=== PATIENT | female | born 1950 | race Caucasian/White ===

== ENCOUNTER → 2017-04-11 10:38 | Outpatient (CLI) | payer MEDICARE, SELFPAY ==
[2017-04-11 12:28] LABS: Erythrocyte Sedimentation Rate 8 mm/hr (0-30)
[2017-04-11 12:31] LABS: Absolute Neutrophil Count 4.2 X10^3/uL (2.0-7.7); Basophil# 0.02 X10^3/uL; Basophil% 0.2 % (0-1); Eosinophil# 0.16 X10^3/uL; Eosinophils% 1.8 % (0-5); Hematocrit 47.5 % (37-47); Hemoglobin 15.7 g/dl (12.0-15.0); Lymphocyte % 43.3 % (19-41); Mean Corp Hgb Conc 33.1 g/gl (32-36); Mean Corpuscular Hgb 30.5 pg (27.0-32.0); Mean Corpuscular Volume 92.2 fL (81-99); Mean Platelet Vol. 10.1 fl (6.2-12.0); Monocyte# 0.63 X10^3/uL; Monocyte% 7.2 % (0-10); Neutrophil # 4.15 X10^3/uL (2.7-7.7); Neutrophil % 47.3 % (47-70); Platelet Count 238 K/mm3 (150-450); RBC Distribution Width CV 13.7 % (11.6-14.6); RBC Distribution Width SD 46.2 fl (35.1-43.9); Red Blood Count 5.15 M/mm3 (4.2-5.4); White Blood Count 8.8 K/mm3 (4.4-11.0)
[2017-04-11 12:35] LABS: POSITIVE COUNT NO; POSITIVE DIFFERENTIAL NO; POSITIVE MORPHOLOGY NO
== END ==
PROVIDERS: Family Provider Family Medicine; PCP Family Medicine; Visit Provider Family Medicine
DX: M79.7 Fibromyalgia (principal)
CPT/HCPCS: 36415; 85025; 85652

== ENCOUNTER → 2017-07-10 09:01 | Outpatient (CLI) | payer MEDICARE, SELFPAY ==
--- NOTE | 2017-07-10 09:04 | ECHOD_ITS ---
Reason For Study: SYNCOPE Procedure This was a 2D Doppler, Color Flow transthoracic echocardiogram. The study was technically difficult. Exam performed in department. Left Ventricle Normal LV size. Moderate concentric left ventricular hypertrophy. Left ventricular systolic function is normal. The estimated ejection fraction is 65 %. Right Ventricle Normal RV size. ICD or pacer leads identified within the right ventricle. Normal systolic function. Atria The left atrium is mildly enlarged. Normal right atrium. ICD or pacer leads identified within the right atrium. No doppler evidence for ASD. Mitral Valve There is moderate mitral annular calcification. Extension of the mitral annular calcification onto the posterior mitral valve leaflet. Mild-Moderate (1-2+) eccentric mitral valve insufficiency. Tricuspid Valve Normal tricuspid valve. Mild tricuspid valve insufficiency. Right ventricular systolic pressure estimated to be 28 mmHg. Aortic Valve Trisinus/trileaflet aortic valve. Mild focal aortic valve calcification. Trivial aortic valve insufficiency. Pulmonic Valve The pulmonic valve is not well visualized. Great Vessels Normal sized aortic root. Pericardium/Pleural No pericardial effusion. MMode/2D Measurements & Calculations LVIDd: 4.2 cm IVSd: 1.6 cm Ao root diam: 2.9 cm LVIDs: 3.0 cm LVPWd: 1.3 cm LA dimension: 4.3 cm RVDd: 2.7 cm FS: 29.1 % LAV(MOD-bp): 43.8 ml LA A4 area: 14.3 cm2 RA A4 area: 12.0 cm2 LAV(MOD-bp) Indexed: 24.4 ml/m2 LAV(MOD-sp2): 49.2 ml LAV(MOD-sp4): 35.9 ml Doppler Measurements & Calculations MV E max artemio: 96.3 cm/sec Lat Peak E' Artemio: 5.6 cm/sec Med Peak E' Artemio: 3.5 cm/sec MV A max artemio: 110.5 cm/sec E/E' lat: 17.1 E/E' med: 27.3 MV E/A: 0.87 Ao V2 max: 155.7 cm/sec AI max artemio: 315.3 cm/sec LV V1 max: 133.4 cm/sec Ao max P.2 mmHg AI max P.8 mmHg LV V1 max P.1 mmHg AI dec slope: 137.7 cm/sec2 AI P1/2t: 670.6 msec PA V2 max: 103.3 cm/sec TR max artemio: 240.2 cm/sec TR max P.2 mmHg Interpretation Summary The study was technically difficult. Left ventricular systolic function is normal. The estimated ejection fraction is 65 %. Moderate concentric left ventricular hypertrophy. The left atrium is mildly enlarged. There is moderate mitral annular calcification. Extension of the mitral annular calcification onto the posterior mitral valve leaflet. Mild-Moderate (1-2+) eccentric mitral valve insufficiency. Mild tricuspid valve insufficiency. Mild focal aortic valve calcification. Trivial aortic valve insufficiency. Right ventricular systolic pressure estimated to be 28 mmHg. Transmitral diastolic flow velocities suggest diastolic dysfunction. ICD or pacer leads identified within the right atrium ICD or pacer leads identified within the right ventricle. Ordering Physician: Mateo Alfaro Referring Physician: Mateo Florian Performed By: Edith Barney RDCS, RVT
== END ==
PROVIDERS: Family Provider Family Medicine; PCP Family Medicine; Visit Provider Nurse Practitioner Family
DX: R55 Syncope and collapse (principal); I25.10 Atherosclerotic heart disease of native coronary artery without angina pectoris; I38 Endocarditis, valve unspecified
CPT/HCPCS: 93306

== ENCOUNTER 2017-12-21 12:08 | Emergency (ER) | payer MEDICARE, SELFPAY ==
[2017-12-21 12:09] VITALS: BP 121/76; PULSE 90; RESP 17; TEMP 36.4; O2SAT 98; BMI 32.8
--- NOTE | 2017-12-21 12:38 | VDLE_ITS ---
Reason For Study: Swelling RIGHT LEFT CFV is compressible, spontaneous, phasic, GSV is normal. competent and demonstrates normal CFV is compressible, spontaneous, phasic, augmentation. competent, and demonstrates normal FV is compressible, spontaneous, phasic, augmentation. competent and demonstrates normal FV is compressible, spontaneous, phasic, augmentation. competent and demonstrates normal POP V is compressible, spontaneous, phasic, augmentation. competent and demonstrates normal POP V is compressible, spontaneous, phasic, augmentation. competent and demonstrates normal T/P Trunk is compressible. augmentation. PTV is compressible. T/P Trunk is compressible. RT PerV is compressible. PTV is compressible. Rt GSV at the knee is dilated and non LT PerV is compressible. compressible consistent with acute SVT. Procedure Exam performed portable in ED. A preliminary report was called and/or faxed to Dr. Vences. Interpretation Summary Deep veins of the lower extremities are bilaterally patent and compressible segmentally. There is no evidence of deep vein thrombosis on either side. Valvular competence appears intact within the proximal deep venous systems bilaterally. Acute superficial thrombophlebitis is noted in the right greater saphenous vein at the level of the knee. The remainder of the right greater saphenous vein is patent and compressible. The left greater saphenous vein appears patent and compressible segmentally. Ordering Physician: Tarun Vences Referring Physician: Mateo Florian Performed By: Viviana Alfaro RDCS, RVT
--- NOTE | 2017-12-21 12:38 | EKG12_ITS ---
Test Reason : SOB Blood Pressure : / mmHG Vent. Rate : 090 BPM Atrial Rate : 090 BPM P-R Int : 162 ms QRS Dur : 154 ms QT Int : 438 ms P-R-T Axes : 072 058 236 degrees QTc Int : 535 ms Sinus rhythm with Premature supraventricular complexes Biatrial enlargement Left bundle branch block Abnormal ECG Confirmed by MIKE VILLA, JOY ([id number]), school photograph editor [place] ([id number]) on 12/22/2017 2:16:02 PM Referred By: ANGELI Confirmed By:JOY MCKEON MD
--- NOTE | 2017-12-21 12:38 | RAD_ITS ---
STUDY: X-RAY CHEST REASON FOR EXAM: Female, 67 years old. Bilateral leg edema, shortness of breath, weakness. TECHNIQUE: PA and lateral views of the chest. COMPARISON: Portable AP upright chest x-ray January 27, 2016; CT chest without contrast July 26, 2016. FINDINGS: Dual-lead left subclavian cardiac pacemaker/AICD again noted. The lungs are clear and expanded. There is no demonstrated pleural abnormality. Normal size heart. Sternal cerclage wires are present from a prior sternotomy. Normal mediastinum and wilmer. Normal visualized pulmonary arteries. Normal visualized aortic arch and descending thoracic aorta. There are stable mild degenerative changes of the mid thoracic spine. There is mild degenerative osteoarthritis of the bilateral acromioclavicular joints. Surgical clips consistent with prior cholecystectomy noted in the medial right upper quadrant of the abdomen. RAD/Chest PA and Lateral IMPRESSION: Prior median sternotomy. Dual-lead cardiac pacemaker/AICD again noted. Heart size normal. No CHF or infiltrate. Electronically Signed: Harish Rubio MD at 13:50 EDT , Service support ,
[2017-12-21 13:03] VITALS: O2SAT 97
[2017-12-21 13:08] LABS: Absolute Lymphocyte Count 3.42 X10^3/ul (0.83-4.51); Absolute Neutrophil Count 6.1 X10^3/uL (2.0-7.7); Basophil# 0.03 X10^3/uL; Basophil% 0.3 % (0-1); Eosinophil# 0.11 X10^3/uL; Eosinophils% 1.1 % (0-5); Hematocrit 45.9 % (37-47); Hemoglobin 15.9 g/dl (12.0-15.0); Lymphocyte # 3.42 X10^3/ul (4.0); Lymphocyte % 32.7 % (19-41); Mean Corp Hgb Conc 34.6 g/gl (32-36); Mean Corpuscular Hgb 31.1 pg (27.0-32.0); Mean Corpuscular Volume 89.8 fL (81-99); Mean Platelet Vol. 10.2 fl (6.2-12.0); Monocyte# 0.77 X10^3/uL; Monocyte% 7.4 % (0-10); Neutrophil # 6.07 X10^3/uL (2.7-7.7); POSITIVE COUNT NO; POSITIVE DIFFERENTIAL NO; POSITIVE MORPHOLOGY NO; Platelet Count 237 K/mm3 (150-450); RBC Distribution Width CV 13.7 % (11.6-14.6); RBC Distribution Width SD 44.7 fl (35.1-43.9); Red Blood Count 5.11 M/mm3 (4.2-5.4); White Blood Count 10.5 K/mm3 (4.4-11.0)
[2017-12-21 13:29] LABS: Anion Gap 8 (5-15); BUN 15 mg/dL (7-18); BUN/Creat Ratio 18.1 RATIO (10-20); Calcium,Total 9.5 mg/dL (8.5-10.1); Chloride 106 mmol/L (98-107); Creatinine, Serum 0.83 mg/dL (0.55-1.02); EST Glomerular Filtration Rate 74 mL/min (>60); Est Glom Filt Rate - Afr Amer 89 mL/min (>60); Estimated Creatinine Clearance 53.45 ml/min; Glucose 96 mg/dL (74-106); Sodium Level 138 mmol/L (136-145)
[2017-12-21 13:39] LABS: BNP,B-Type NATRIURETIC PEPTIDE 79.6 pg/mL (0-100)
[2017-12-21 13:53] LABS: CPK Total, Creatine Kinase 86 U/L (26-192)
--- NOTE | 2017-12-21 14:20 | CT_ITS ---
STUDY: CTA OF THE ABDOMINAL AORTA AND BILATERAL LOWER EXTREMITIES REASON FOR EXAM: Female, 67 years old. Increased shortness of breath, bilateral leg edema. History of bilateral hip replacement and right ankle surgery. RADIATION DOSAGE (If Supplied By Facility): CTDIvol = ( 10.26 ) mGy, DLP = ( 1710.71 ) mGycm TECHNIQUE: Axial CT angiography multi-detector data acquisition was obtained from the suprarenal abdominal aorta to the mid toes following intravenous administration of 100 ml of Isovue 370 contrast. Axial images and MIP images were reconstructed from the axial data set. Post-processing of the angiographic images was performed, with multiplanar reformation and 3D reconstruction. Individualized dose optimization techniques were used for this CT. TECHNICAL QUALITY: Good COMPARISON: None. Descriptors of Narrowing: None (0%) Mild (< 50%) Moderate (50-70%) Severe (70-90%) Subtotal/Total Occlusion (90-100%) Non-Evaluable (technically non-diagnostic FINDINGS: Abdominal aorta: There is moderate diffuse, mildly calcific atherosclerotic plaquing of the abdominal aorta, with 1.6 x 1.6 cm fusiform aneurysm doing the takeoff of the inferior mesenteric artery and the aortic bifurcation. There is no demonstrated hemodynamically significant stenosis or dissection. Celiac artery: Not fully included in the aeqoh-cr-amyp Superior mesenteric artery: No demonstrated narrowing. Inferior mesenteric artery: No demonstrated narrowing. Right renal artery(arteries): No demonstrated narrowing. Left renal artery(arteries): No demonstrated narrowing. Right common iliac artery: Mild to moderate posterior medial calcific plaquing with no demonstrated narrowing or aneurysm. Right external iliac artery: No demonstrated narrowing. Right internal iliac artery: Mild ostial atherosclerotic narrowing. Left common iliac artery: 50-75% ostial atherosclerotic narrowing (series 601 image 58). Left external iliac artery: No demonstrated narrowing. Left internal iliac artery: No demonstrated narrowing. RIGHT LOWER EXTREMITY Right common femoral artery: No demonstrated narrowing. Right profundus femoris: No demonstrated narrowing. Right superficial femoral: No demonstrated narrowing. Right popliteal artery: No demonstrated narrowing. Right anterior tibial artery: No demonstrated narrowing. Right tibioperoneal trunk: No demonstrated narrowing. Right posterior tibial artery: No demonstrated narrowing. Right peroneal artery: No demonstrated narrowing. LEFT LOWER EXTREMITY Left common femoral artery: No demonstrated narrowing. Left profundus femoris: No demonstrated narrowing. Left superficial femoral: No demonstrated narrowing. Left popliteal artery: No demonstrated narrowing. Left anterior tibial artery: No demonstrated narrowing. Left tibioperoneal trunk: No demonstrated narrowing. Left posterior tibial artery: No demonstrated narrowing. Left peroneal artery: No demonstrated narrowing. Normal visualized liver. There are surgical clips in the gallbladder fossa consistent with a prior cholecystectomy. The common bile duct measures up to 1.5 cm diameter. Normal visualized spleen. Normal pancreas. Normal visualized bilateral adrenal glands. Normal right kidney. Normal visualized left kidney. The tip of the upper pole was not included in the naelw-is-musk. No hydronephrosis. Normal visualized stomach. Normal visualized small intestine. There are multiple colonic diverticula consistent with diverticulosis. The appendix is visualized and appears normal. Normal inferior vena cava. Normal retroperitoneum. Normal urinary bladder. There is absence of the uterus consistent with a prior hysterectomy. There is a small umbilical hernia containing fat. The generator of a sacral stimulator is seen in the subcutis tissues of the left buttock, its lead passing through the right third sacral foramen. There is mild superficial soft tissue swelling in the mid to distal thighs as well as in the lower legs. There are mild multilevel degenerative changes of the visualized lumbar spine and early degenerative changes of the bilateral sacroiliac joints. The patient has undergone prior bilateral total hip replacements, and bilateral middle hip prostheses are present. Irregular sclerotic densities in the distal metadiaphyses of the femora, as well as in the proximal and distal metadiaphyses of the tibiae are consistent with old infarcts. There is old healed ORIF of a bimalleolar right ankle fracture with metal screws in the distal tibial and fibular metaphyses. CT/CTA Abd w/Runoff W/WO Contrast IMPRESSION: 1. Atherosclerotic plaquing of the abdominal aorta and iliac arteries with 50-75% osteal stenosis of the left common iliac artery. There is 1.6 cm fusiform ectasia of the distal abdominal aorta. 2. No hemodynamically significant stenosis of the infrainguinal arterial segments. 3. Mild superficial soft tissue swelling in the mid to distal thighs as well as in the lower legs. 4. Irregular sclerotic densities in the distal femoral metaphyses as well as in the proximal and distal metaphyses of the tibiae are consistent with old infarcts. 5. Old healed ORIF of bimalleolar right ankle fracture with metal hardware. 6. Right sacral stimulator noted. 7. Prior cholecystectomy and hysterectomy. 8. Colonic diverticulosis without acute diverticulitis. No sign of bowel obstruction. The appendix is normal. 9. No hydronephrosis. 10. Small, fat-containing umbilical hernia. Electronically Signed: Harish Rubio MD at 16:41 EDT , Service support ,
[2017-12-21 15:46] VITALS: BP 130/78; PULSE 78; RESP 16; O2SAT 98
--- NOTE | 2017-12-21 16:47 | ED.VISSUMM ---
- ER Visit Summary Date of Service: 12/21/17 Chief Complaint: Leg swelling and mild shortness of breath History of Present Illness: The patient is a 67 F who has a history of LVH and obstructive cardiomyopathy, coronary artery disease, hypertension, hyperlipidemia. She states that she has had intermittent leg swelling but has developed acute swelling and cramping in the legs over the last couple of hours. She also has felt mildly short of breath over the last 2-3 hours. No chest pain cough fevers vomiting or diarrhea. She states that her legs feel kind of numb. No recent illness. No history of DVT or pulmonary embolism. Physical Examination: Afebrile vitals are normal Moist mucous membranes Heart regular rate and rhythm next line lungs are clear Abdomen soft Patient does have mild symmetric lower extremity edema she has bilateral leg and calf tenderness it was difficult to palpate her dorsalis pedis pulses although they were palpable and confirmed with Doppler Patient is anxious Test Results: EKG shows sinus rhythm at a rate of 90 with a left bundle branch block. CBC BMP troponin BNP all normal. Chest x-ray shows prior sternotomy as well as pacer and AICD no cardiomegaly no CHF or infiltrate. CTA of the abdomen shows atherosclerotic changes as well as a 1.6 x 1.6 distal aortic aneurysm there is 50-75% stenosis of the left common iliac. Venous duplex of the bilateral lower extremities shows no evidence of DVT there is a right greater saphenous vein superficial venous thrombosis. Emergency Department Course and Treatment: Workup as above. Given patient's bilateral leg cramping and swelling I initially obtain venous duplexes and laboratory studies. There is no evidence of DVT. She does not have evidence of congestive heart failure. Although she had palpable pulses given complaint of bilateral lower extremity pain and cramping a CTA was obtained to rule out any acute arterial occlusion or disease. This shows no acute findings. Her total CPK is normal. I believe acute serious limb or life-threatening pathology has been ruled out and she can follow-up as an outpatient for further evaluation if symptoms continue. She is agreeable to this plan. She understands to return for new or worsening symptoms and was discharged home. Treatment Plan: [] Disposition: Discharge Impression: Peripheral edema Bilateral leg cramps This note was generated with [employer] dictation software. It may contain incorrect words, spelling, and punctuation that were not noted in review of the chart prior to signing ED Disposition - Plan for ED Patient: Chief Complaint: Shortness of Breath Referrals: Mateo Florian MD [Primary Care Provider] -
--- NOTE | 2017-12-21 16:51 | ED.DEP ---
ED Disposition - Plan for ED Patient: Chief Complaint: Shortness of Breath Instructions: ED Muscle Pain Leg Cramps, ED Leg Swelling Bilateral Referrals: Mateo Florian MD [Primary Care Provider] -
[2017-12-21 16:53] VITALS: BP 126/66; PULSE 78; RESP 16; O2SAT 98
--- NOTE | 2017-12-22 13:37 | CM.ED ---
ED CALLBACK: Follow-up call to patient with no answer. Voicemail states the mailbox is full. Will reattempt call as time allows.
== END 2017-12-21 17:06 | disposition home or self-care (01) ==
PROVIDERS: Emergency Provider Emergency Medicine; Family Provider Family Medicine; PCP Family Medicine
DX: R25.2 Cramp and spasm (principal); R60.0 Localized edema; I44.7 Left bundle-branch block, unspecified; Z95.810 Presence of automatic (implantable) cardiac defibrillator; I25.10 Atherosclerotic heart disease of native coronary artery without angina pectoris; I10 Essential (primary) hypertension; E78.5 Hyperlipidemia, unspecified; Z72.0 Tobacco use
CPT/HCPCS: 71046; 75635; 80048; 82550; 83880; 84484; 85025; 93005; 93970; 99285; Q9967; A4216

== ENCOUNTER → 2018-01-12 07:36 | Outpatient (CLI) | payer MEDICARE, SELFPAY ==
[2018-01-12 10:35] LABS: AST(SGOT) 9 U/L (15-37); Alanine Aminotransfer ALT/SGPT 22 U/L (13-56); Albumin, Serum 3.6 g/dL (3.2-5.0); Alkaline Phosphatase 95 U/L (45-117); Cholesterol 282 mg/dL (200); Globulin 3.8 g/dL (2.2-4.2); High Density Lipoprotein 27 mg/dL; Protein, Total 7.4 g/dL (6.4-8.2); T4 Free Direct 0.94 ng/dL (0.76-1.46); Thyroid Stim Hormone (TSH) 2.14 uIU/mL (0.358-3.74); Triglycerides 630 mg/dL
--- NOTE | 2018-01-12 14:16 | PFTCOMP ---
COMPLETE PULMONARY FUNCTION TEST INTERPRETATION Brief HPI: Patient is a 67 year old male, currently under the care of Mateo Alfaro, who presents to [facility] for complete pulmonary function tests secondary to diagnosis of dyspnea on exertion. Respiratory therapist reports good effort and reproducible results. Interpretation: Forced expiration spirometry shows no large airways obstructive ventilatory defect with an FEV1 of 85% predicted. There is no significant bronchodilator response by strict ATS criteria. Spirograms are of good quality and plateau normally. The respiratory flow volume loop shows a normal pattern. Lung volumes by body plethysmography show a normal total lung capacity at 4.79 L, 105% predicted. All other lung volumes are within normal limits. Diffusion capacity by carbon monoxide is normal at 82% predicted. The airway resistance is elevated. Compared to previous pulmonary function tests from 06/18/2016, there has been a significant improvement in DLCO by 29%. Impression: These pulmonary function tests are within normal limits. There has been a significant improvement in diffusion capacity compared to previous.
--- NOTE | 2018-01-12 14:19 | PFTCOMP_ITS ---
COMPLETE PULMONARY FUNCTION TEST INTERPRETATION Brief HPI: Patient is a 67 year old male, currently under the care of Mateo Alfaro, who presents to [facility] for complete pulmonary function tests secondary to diagnosis of dyspnea on exertion. Respiratory therapist reports good effort and reproducible results. Interpretation: Forced expiration spirometry shows no large airways obstructive ventilatory defect with an FEV1 of 85% predicted. There is no significant bronchodilator response by strict ATS criteria. Spirograms are of good quality and plateau normally. The respiratory flow volume loop shows a normal pattern. Lung volumes by body plethysmography show a normal total lung capacity at 4.79 L, 105% predicted. All other lung volumes are within normal limits. Diffusion capacity by carbon monoxide is normal at 82% predicted. The airway resistance is elevated. Compared to previous pulmonary function tests from 06/18/2016, there has been a significant improvement in DLCO by 29%. Impression: These pulmonary function tests are within normal limits. There has been a significant improvement in diffusion capacity compared to previous.
== END ==
PROVIDERS: Family Provider Family Medicine; PCP Family Medicine; Referring Provider Nurse Practitioner Family; Visit Provider Nurse Practitioner Family
DX: R06.09 Other forms of dyspnea (principal); E78.5 Hyperlipidemia, unspecified; I25.10 Atherosclerotic heart disease of native coronary artery without angina pectoris
CPT/HCPCS: 36415; 80061; 80076; 84439; 84443; 94060; 94726; 94729

== ENCOUNTER → 2018-09-02 | Outpatient (CLI) | payer MEDICARE, SELFPAY ==
[2018-08-17 08:57] VITALS: BMI 32.1
--- NOTE | 2018-09-02 14:58 | ECHOD_ITS ---
Reason For Study: DYSPNEA/SOB Procedure This was a 2D Doppler, Color Flow transthoracic echocardiogram. The study was technically difficult. Due to arrhythmia. Exam performed in department. Left Ventricle Normal LV size. Moderate assymetric septal hypertrophy. Left ventricular systolic function is normal. The estimated ejection fraction is 65 %. There is evidence of diastolic dysfunction. No regional wall motion abnormalities noted. Right Ventricle Normal RV size. ICD or pacer leads identified within the right ventricle. Normal systolic function. Atria The left atrium is mildly enlarged. Normal right atrium. ICD or pacer leads identified within the right atrium. No doppler evidence for ASD. Mitral Valve There is moderate to severe mitral annular calcification. Extension of the mitral annular calcification onto the posterior mitral valve leaflet. Mild-Moderate (1-2+) eccentric mitral valve insufficiency. Tricuspid Valve Normal tricuspid valve. Trivial tricuspid valve insufficiency. Right ventricular systolic pressure estimated to be 25 mmHg. Aortic Valve Trisinus/trileaflet aortic valve. Mild focal aortic valve thickening. Trivial aortic valve insufficiency. Pulmonic Valve The pulmonic valve is not well visualized. Trivial pulmonic valve insufficiency. Great Vessels Normal sized aortic root. Pericardium/Pleural No pericardial effusion. MMode/2D Measurements & Calculations LVIDd: 4.1 cm IVSd: 1.6 cm Ao root diam: 3.0 cm LVIDs: 3.0 cm LVPWd: 1.3 cm RVDd: 3.5 cm FS: 25.0 % LAV(MOD-bp): 61.7 ml LA A4 area: 19.9 cm2 LA dimension(2D): 3.8 cm LAV(MOD-bp) Indexed: 34.1 ml/m2 LAV(MOD-sp2): 58.0 ml LAV(MOD-sp4): 66.2 ml Time Measurements MV dec time: 0.26 sec Doppler Measurements & Calculations MV E max artemio: 108.5 cm/sec Lat Peak E' Artemio: 4.1 cm/sec Med Peak E' Artemio: 3.5 cm/sec MV A max artemio: 142.8 cm/sec E/E' lat: 26.7 E/E' med: 31.1 MV E/A: 0.76 Ao V2 max: 130.5 cm/sec AI max artemio: 365.5 cm/sec LV V1 max: 125.0 cm/sec Ao max P.8 mmHg AI max P.5 mmHg LV V1 max P.3 mmHg AI dec slope: 269.3 cm/sec2 AI P1/2t: 397.5 msec PA V2 max: 110.6 cm/sec TR max artemio: 233.8 cm/sec TR max P.9 mmHg Interpretation Summary The study was technically difficult. Left ventricular systolic function is normal. The estimated ejection fraction is 65 %. Moderate assymetric septal hypertrophy. The left atrium is mildly enlarged. There is moderate to severe mitral annular calcification. Extension of the mitral annular calcification onto the posterior mitral valve leaflet. Mild-Moderate (1-2+) eccentric mitral valve insufficiency. Trivial tricuspid valve insufficiency. Mild focal aortic valve thickening. Trivial aortic valve insufficiency. Trivial pulmonic valve insufficiency. Right ventricular systolic pressure estimated to be 25 mmHg. There is evidence of diastolic dysfunction. Ordering Physician: Mateo Alfaro Referring Physician: Mateo Florian Performed By: Edith Barney, GLENYS, RVT
== END | disposition home or self-care (01) ==
PROVIDERS: Family Provider Family Medicine; PCP Family Medicine; Referring Provider Nurse Practitioner Family; Visit Provider Nurse Practitioner Family
DX: I42.2 Other hypertrophic cardiomyopathy (principal); I25.10 Atherosclerotic heart disease of native coronary artery without angina pectoris; I38 Endocarditis, valve unspecified; Z86.79 Personal history of other diseases of the circulatory system; Z98.890 Other specified postprocedural states
CPT/HCPCS: 93306

== ENCOUNTER → 2018-09-22 06:06 | Outpatient (CLI) | payer MEDICARE, SELFPAY ==
[2018-09-07 15:24] VITALS: BMI 32.1
--- NOTE | 2018-09-22 14:00 | STRESSREP_ITS ---
Stress Test Report Date: 09-22-18 Procedure: Exercise tolerance test/imaging study Indications: Chest pain; hypertrophic obstructive cardiomyopathy; septal myec santy; aortic valve repair; ICD Consent: Per the patient Procedure: The patient exercised on a Mikey protocol for 7 minutes and 30 seconds completing Stage II and 1 minute and 30 seconds of Stage III achieving a peak heart rate of 139 bpm (89 % predicted maximal heart rate) with a peak blood pressure 144/72 mmHg and a peak MET capacity of 9 METs. The baseline ECG demonstrated normal sinus rhythm; left bundle branch block pattern. The peak exercise ECG demonstrated continued left bundle branch block pattern. There was an isolated PVC during exercise. The functional capacity was considered good. There was no complaint of chest discomfort during exercise or recovery-6. The examination was discontinued secondary to dyspnea. Impression: 1. Technically adequate (percent predicted maximal heart rate greater than 85%) exercise tolerance test 2. Peak exercise ECG with continued left bundle branch block pattern 3. There was an isolated PVC during exercise 4. Nuclear images pending Myocardial perfusion imaging study: Technique: The patient was injected with 11.3 mCi of technetium 99m Cardiolite and subsequently rest SPECT Cardiolite nuclear imaging was obtained in the horiz ontal long, vertical long, and short axis views. The patient exercised on a Mikey protocol for 7 minutes and 30 seconds completing Stage II and 1 minute and 30 seconds of Stage III achieving a peak heart rate of 139 bpm (89 % predicted maximal heart rate) with a peak blood pressure 144/72 mmHg and a peak MET capacity of 9 METs. The patient was injected with 33.6 mCi of technetium 99m Cardiolite and subsequently stress SPECT Cardiolite nuclear imaging was obtained in the horizontal long, vertical long, and short axis views. A gated Cardiolite study at peak stress was obtained. Interpretation: Rest and stress SPECT Cardiolite nuclear imaging status post realignment, normalization, and attenuation correction, demonstrates the appearance of relative uniform tracer uptake and myocardial perfusion appearing within normal limits. There is end systolic thickening and brightening. The gated Cardiolite study demonstrates myocardial thickening and inward wall motion. The reported LVEF is 57 %. Impression: 1. Rest and stress SPECT Cardiolite nuclear imaging demonstrate relative uniform tracer uptake and myocardial perfusion appearing within normal limits. 2. The gated Cardiolite study reports an LVEF of 57 %. This note was generated with [employer] software. It may contain incorrect words, spelling, and punctuation that were not noted in checking the note before signing.
== END ==
PROVIDERS: Family Provider Family Medicine; PCP Family Medicine; Referring Provider Nurse Practitioner Family; Visit Provider Nurse Practitioner Family
DX: I25.10 Atherosclerotic heart disease of native coronary artery without angina pectoris (principal); R06.02 Shortness of breath; I10 Essential (primary) hypertension; Z86.79 Personal history of other diseases of the circulatory system; Z98.890 Other specified postprocedural states
CPT/HCPCS: 78452; 93017; A9500; A4216

== ENCOUNTER → 2019-03-15 16:17 | Outpatient (CLI) | payer MEDICARE, SELFPAY ==
[2018-09-07 15:24] VITALS: BMI 32.1
[2019-03-15 18:11] LABS: Anion Gap 8 (5-15); BUN 17 mg/dL (7-18); BUN/Creat Ratio 18.3 RATIO (10-20); Calcium,Total 9.4 mg/dL (8.5-10.1); Chloride 108 mmol/L (98-107); Creatinine, Serum 0.93 mg/dL (0.55-1.02); EST Glomerular Filtration Rate 64 mL/min (>60); Est Glom Filt Rate - Afr Amer 78 mL/min (>60); Glucose 92 mg/dL (74-106); Potassium 3.7 mmol/L (3.5-5.1); Sodium Level 138 mmol/L (136-145)
== END ==
PROVIDERS: Family Provider Family Medicine; PCP Family Medicine; Visit Provider Nurse Practitioner Family
DX: R11.2 Nausea with vomiting, unspecified (principal)
CPT/HCPCS: 36415; 80048

== ENCOUNTER → 2019-04-15 | Outpatient (CLI) | payer MEDICARE, SELFPAY ==
[2019-04-05 13:44] VITALS: BMI 32.5
--- NOTE | 2019-04-15 08:05 | RAD_ITS ---
STUDY: X-RAY CHEST REASON FOR EXAM: Female, 68 years old. pt. on amiodarone therapy, cardiomyopathy, hx of open heart TECHNIQUE: PA and lateral views of the chest. COMPARISON: Comparison is made with prior examination dated December 21, 2017. FINDINGS: The lungs are clear and expanded. There is no demonstrated pleural abnormality. Sternal cerclage wires and vascular clips are present from a prior sternotomy and coronary artery bypass graft procedure (CABG). A left-sided dual-chamber pacemaker is seen. Normal mediastinum and wilmer. Normal visualized pulmonary arteries. Normal visualized aortic arch and descending thoracic aorta. There are mild degenerative changes of the visualized thoracic spine. Normal visualized ribs, clavicles, and shoulders. Surgical clips are seen in the right upper quadrant most likely secondary to prior cholecystectomy. RAD/Chest PA and Lateral IMPRESSION: Stable examination. No acute abnormality is seen. Electronically Signed: Yair Chahal, at 9:45 EST , Service support ,
[2019-04-15 09:32] LABS: AST(SGOT) 16 U/L (15-37); Alanine Aminotransfer ALT/SGPT 29 U/L (13-56); Albumin, Serum 3.5 g/dL (3.2-5.0); Alkaline Phosphatase 93 U/L (45-117); Bilirubin, Direct 0.13 mg/dL (0.00-0.30); Cholesterol 294 mg/dL (200); Globulin 4.1 g/dL (2.2-4.2); High Density Lipoprotein 33 mg/dL; Protein, Total 7.6 g/dL (6.4-8.2); T4 Free Direct 0.84 ng/dL (0.76-1.46); Thyroid Stim Hormone (TSH) 3.14 uIU/mL (0.358-3.74); Triglycerides 454 mg/dL
== END | disposition home or self-care (01) ==
PROVIDERS: PCP Family Medicine; Referring Provider Internal Medicine Cardiovascular Disease; Visit Provider Internal Medicine Cardiovascular Disease
DX: I42.2 Other hypertrophic cardiomyopathy (principal); E78.5 Hyperlipidemia, unspecified
CPT/HCPCS: 36415; 71046; 80061; 80076; 84439; 84443

== ENCOUNTER → 2019-04-28 | Outpatient (CLI) | payer MEDICARE, SELFPAY ==
[2019-04-05 13:44] VITALS: BMI 32.5
--- NOTE | 2019-04-28 08:56 | AAVD_ITS ---
Reason For Study: Atherosclerosis Aorta Measurements Aorta Doppler Measurements Proximal aorta measures2.05 x 2.03cm. in cross- Peak systolic flow velocities within the proximal sectional axis. aorta measure 73.2 cm/sec. Proximal aorta measures1.84cm. in longitudinal Peak systolic flow velocities within the mid aorta axis. measure 76.5 cm/sec. Mid aorta measures1.29 x 1.27cm. in cross- Peak systolic flow velocities within the distal sectional axis. aorta measure 97.9 cm/sec. Mid aorta measures1.29cm. in longitudinal axis. Distal aorta measures1.20 x 1.20cm. in cross- sectional axis. Distal aorta measures1.6cm. in longitudinal axis. Left Iliac Artery Left iliac artery measures 0.71 x 0.71 cm. in the cross-sectional axis. Left iliac artery measures 0.70 cm. in the longitudinal axis. Peak systolic velocity in the left iliac artery measures 134.4 cm/sec. Right Iliac Artery Right iliac artery measures 0.73 x 0.73 cm. in the cross-sectional axis. Right iliac artery measures 0.72 cm. in the longitudinal axis. Peak systolic velocity in the right iliac artery measures 99.7 cm/sec. Procedure Aorta IVC Iliac vasculature or bypass grafts [id number]. Exam performed in department. Interpretation Summary 1. Aortoiliac with no aneurysm or stenosis visualized. Ordering Physician: Elvis Mensah Referring Physician: Mateo Robles Performed By: Stefany Mantilla RVT
== END | disposition home or self-care (01) ==
LOC: CVS 08:54
PROVIDERS: PCP Family Medicine; Referring Provider Surgery Vascular Surgery; Visit Provider Surgery Vascular Surgery
DX: I70.213 Atherosclerosis of native arteries of extremities with intermittent claudication, bilateral legs (principal); E78.00 Pure hypercholesterolemia, unspecified; J45.909 Unspecified asthma, uncomplicated; I51.9 Heart disease, unspecified; M79.89 Other specified soft tissue disorders; I77.1 Stricture of artery; Z95.810 Presence of automatic (implantable) cardiac defibrillator; Z72.0 Tobacco use; Z86.718 Personal history of other venous thrombosis and embolism
CPT/HCPCS: 93978

== ENCOUNTER → 2019-10-04 | Outpatient (CLI) | payer MEDICARE, SELFPAY ==
[2019-10-04 10:17] VITALS: BMI 32.5
[2019-10-04 11:48] LABS: Erythrocyte Sedimentation Rate 8 mm/hr (0-30)
[2019-10-04 11:51] LABS: Absolute Lymphocyte Count 3.86 X10^3/uL (0.83-4.51); Absolute Neutrophil Count 4.9 X10^3/uL (2.0-7.7); Basophil# 0.04 X10^3/uL; Basophil% 0.4 % (0-1); Eosinophil# 0.11 X10^3/uL; Eosinophils% 1.1 % (0-5); Hematocrit 45.7 % (37-47); Hemoglobin 15.3 g/dL (12.0-15.0); Lymphocyte # 3.86 X10^3/ul (4.0); Lymphocyte % 40.2 % (19-41); Mean Corp Hgb Conc 33.5 g/dL (32-36); Mean Corpuscular Hgb 31.9 pg (27.0-32.0); Mean Corpuscular Volume 95.2 fL (81-99); Mean Platelet Vol. 11.1 fl (6.2-12.0); Monocyte# 0.65 X10^3/uL; Monocyte% 6.8 % (0-10); NRBC Flagged by Analyzer 0 % (0-5); Platelet Count 263 K/mm3 (150-450); RBC Distribution Width CV 12.9 % (11.6-14.6); RBC Distribution Width SD 45.3 fl (35.1-43.9); White Blood Count 9.6 K/mm3 (4.4-11.0)
[2019-10-04 12:35] LABS: AST(SGOT) 19 U/L (15-37); Alanine Aminotransfer ALT/SGPT 34 U/L (13-56); Alkaline Phosphatase 62 U/L (45-117); Bilirubin, Direct 0.11 mg/dL (0.00-0.30); CRP < 2.90 mg/L (0.0-3.0); Cholesterol 194 mg/dL (200); Globulin 3.1 g/dL (2.2-4.2); High Density Lipoprotein 37 mg/dL; Protein, Total 7.1 g/dL (6.4-8.2); Triglycerides 234 mg/dL; Very Low Density Lipoprotein 47 mg/dL (5-40)
== END | disposition home or self-care (01) ==
LOC: LAB 11:02
PROVIDERS: PCP Family Medicine; Referring Provider Nurse Practitioner Family; Visit Provider Nurse Practitioner Family
DX: E78.5 Hyperlipidemia, unspecified (principal); R51 Headache; I25.10 Atherosclerotic heart disease of native coronary artery without angina pectoris; I48.0 Paroxysmal atrial fibrillation; R42 Dizziness and giddiness
CPT/HCPCS: 36415; 80061; 80076; 85025; 85652; 86140

== ENCOUNTER → 2019-10-15 | Outpatient (CLI) | payer MEDICARE, SELFPAY ==
[2019-10-04 10:17] VITALS: BMI 32.5
--- NOTE | 2019-10-15 14:49 | ECHOD_ITS ---
Reason For Study: HYPERTROPHIC CMP Procedure This was a 2D Doppler, Color Flow transthoracic echocardiogram. The study was technically difficult. Exam performed in department. Left Ventricle Normal LV size. Moderate assymetric septal hypertrophy. Left ventricular systolic function is normal. The estimated ejection fraction is 65 %. There is evidence of diastolic dysfunction. No regional wall motion abnormalities noted. Right Ventricle Normal RV size. ICD or pacer leads identified within the right ventricle. Normal systolic function. Atria The left atrium is mildly enlarged. Normal right atrium. ICD or pacer leads identified within the right atrium. No doppler evidence for ASD. Mitral Valve There is moderate to severe mitral annular calcification. Extension of the mitral annular calcification onto the base of the posterior mitral valve leaflet. Mild (1+) mitral valve insufficiency. Tricuspid Valve Normal tricuspid valve. Trivial tricuspid valve insufficiency. Unable to estimate RV systolic pressure/pulmonary artery pressure due to technically difficult study. Aortic Valve Trisinus/trileaflet aortic valve. Normal aortic valve. Trivial aortic valve insufficiency. Pulmonic Valve The pulmonic valve is not well visualized. Great Vessels Normal sized aortic root. Pericardium/Pleural No pericardial effusion. MMode/2D Measurements & Calculations LVIDd: 4.4 cm IVSd: 1.7 cm LVOT diam: 2.0 cm LVIDs: 3.2 cm LVPWd: 1.1 cm LVOT area: 3.3 cm2 FS: 27.7 % Ao root diam: 2.8 cm LAV(MOD-bp): 66.8 ml LA A4 area: 21.3 cm2 LAV(MOD-bp) Indexed: 36.9 ml/m2 LAV(MOD-sp2): 62.6 ml LAV(MOD-sp4): 68.6 ml LA dimension(2D): 4.3 cm Time Measurements MV dec time: 0.33 sec Doppler Measurements & Calculations MV E max artemio: 91.5 cm/sec Lat Peak E' Artemio: 3.7 cm/sec Med Peak E' Artemio: 3.2 cm/sec MV A max artemio: 149.2 cm/sec E/E' lat: 24.7 E/E' med: 28.4 MV E/A: 0.61 Ao V2 max: 219.6 cm/sec AI max artemio: 344.2 cm/sec LV V1 max: 169.2 cm/sec Ao max P.4 mmHg AI max P.6 mmHg LV V1 max P.5 mmHg Ao V2 mean: 155.2 cm/sec LV V1 mean P.7 mmHg Ao mean P.8 mmHg AI dec slope: 182.6 cm/sec2 LV V1 mean: 123.0 cm/sec Ao V2 VTI: 41.5 cm AI P1/2t: 552.1 msec LV V1 VTI: 35.6 cm SHANNON(I,D): 2.8 cm2 SHANNON(V,D): 2.5 cm2 SV(LVOT): 116.0 ml PA V2 max: 120.3 cm/sec Interpretation Summary The study was technically difficult. Left ventricular systolic function is normal. The estimated ejection fraction is 65 %. Moderate assymetric septal hypertrophy. The left atrium is mildly enlarged. There is moderate to severe mitral annular calcification. Extension of the mitral annular calcification onto the base of the posterior mitral valve leaflet. Mild (1+) mitral valve insufficiency. Trivial tricuspid valve insufficiency. Trivial aortic valve insufficiency. Unable to estimate RV systolic pressure/pulmonary artery pressure due to technically difficult study. There is evidence of diastolic dysfunction. Ordering Physician: Mateo Alfaro Referring Physician: Mateo Robles Performed By: Edith Barney RDCS, RVT
== END | disposition home or self-care (01) ==
LOC: CVS 14:48
PROVIDERS: PCP Family Medicine; Referring Provider Nurse Practitioner Family; Visit Provider Nurse Practitioner Family
DX: I25.10 Atherosclerotic heart disease of native coronary artery without angina pectoris (principal); I42.2 Other hypertrophic cardiomyopathy; E78.5 Hyperlipidemia, unspecified; Z86.79 Personal history of other diseases of the circulatory system; Z98.890 Other specified postprocedural states
CPT/HCPCS: 93306

== ENCOUNTER → 2019-12-28 | Outpatient (CLI) | payer MEDICARE, SELFPAY ==
[2019-10-04 10:17] VITALS: BMI 32.5
[2019-12-28 10:58] LABS: Erythrocyte Sedimentation Rate 6 mm/hr (0-30)
[2019-12-28 11:00] LABS: Absolute Neutrophil Count 4.7 X10^3/uL (2.0-7.7); Basophil# 0.03 X10^3/uL; Basophil% 0.3 % (0-1); Eosinophil# 0.08 X10^3/uL; Eosinophils% 0.9 % (0-5); Hematocrit 48.3 % (37-47); Hemoglobin 15.7 g/dL (12.0-15.0); Lymphocyte % 38.7 % (19-41); Mean Corp Hgb Conc 32.5 g/dL (32-36); Mean Corpuscular Volume 95.5 fL (81-99); Mean Platelet Vol. 11.1 fl (6.2-12.0); Monocyte# 0.67 X10^3/uL; Monocyte% 7.4 % (0-10); NRBC Flagged by Analyzer 0 % (0-5); Neutrophil % 51.9 % (47-70); Platelet Count 235 K/mm3 (150-450); RBC Distribution Width CV 13.6 % (11.6-14.6); Red Blood Count 5.06 M/mm3 (4.2-5.4); White Blood Count 9.1 K/mm3 (4.4-11.0)
[2019-12-28 11:35] LABS: CRP < 2.90 mg/L (0.0-3.0)
== END | disposition home or self-care (01) ==
LOC: LAB 10:03
PROVIDERS: PCP Family Medicine; Referring Provider Physician Assistant; Visit Provider Physician Assistant
DX: Z96.642 Presence of left artificial hip joint (principal)
CPT/HCPCS: 36415; 85025; 85652; 86140

== ENCOUNTER → 2020-05-11 10:13 | Outpatient (CLI) | payer MEDICARE, SELFPAY ==
[2020-05-11 09:07] VITALS: BMI 32.8
--- NOTE | 2020-05-11 10:20 | RAD_ITS ---
STUDY: X-RAY CHEST REASON FOR EXAM: Female, 69 years old. Amiodarone -- [facility], AFIB, HTN, COUGH TECHNIQUE: PA and lateral views of the chest. COMPARISON: Comparison is made with prior examination dated 04/15/2019. FINDINGS: The lungs are clear and expanded. There is no demonstrated pleural abnormality. Sternal cerclage wires are present from a prior sternotomy. A left-sided ICD is seen. Normal mediastinum and wilmer. Normal visualized pulmonary arteries. Normal visualized aortic arch and descending thoracic aorta. There are mild degenerative changes of the visualized thoracic spine. Normal visualized ribs, clavicles, and shoulders. Status post cholecystectomy RAD/Chest PA and Lateral IMPRESSION: No acute abnormality is seen. Stable examination. Electronically Signed: Yair Chahal MD at 10:51 EST , Service support ,
[2020-05-11 11:50] LABS: AST(SGOT) 18 U/L (15-37); Alanine Aminotransfer ALT/SGPT 32 U/L (13-56); Albumin, Serum 3.7 g/dL (3.2-5.0); Alkaline Phosphatase 92 U/L (45-117); Bilirubin, Direct 0.09 mg/dL (0.00-0.30); Cholesterol 338 mg/dL (200); Globulin 3.7 g/dL (2.2-4.2); High Density Lipoprotein 35 mg/dL; Protein, Total 7.4 g/dL (6.4-8.2); T4 Free Direct 1.12 ng/dL (0.76-1.46); Thyroid Stim Hormone (TSH) 1.79 uIU/mL (0.358-3.74); Triglycerides 444 mg/dL
== END ==
PROVIDERS: PCP Family Medicine; Referring Provider Internal Medicine Cardiovascular Disease; Visit Provider Internal Medicine Cardiovascular Disease
DX: E78.5 Hyperlipidemia, unspecified (principal); I10 Essential (primary) hypertension; I25.10 Atherosclerotic heart disease of native coronary artery without angina pectoris; I42.2 Other hypertrophic cardiomyopathy; I48.0 Paroxysmal atrial fibrillation; E78.00 Pure hypercholesterolemia, unspecified; Z79.899 Other long term (current) drug therapy; Z86.79 Personal history of other diseases of the circulatory system; Z95.810 Presence of automatic (implantable) cardiac defibrillator; Z98.890 Other specified postprocedural states
CPT/HCPCS: 36415; 71046; 80061; 80076; 84439; 84443

== ENCOUNTER → 2020-05-25 08:47 | Outpatient (CLI) | payer MEDICARE, SELFPAY ==
[2020-05-11 09:07] VITALS: BMI 32.8
--- NOTE | 2020-05-26 09:40 | PFT ---
INTRODUCTION: The patient is a 69-year-old male that presents for pulmonary function studies secondary to a diagnosis of atrial fibrillation. Respiratory therapy reports good patient effort. Bronchodilators were used during testing. INTERPRETATION: Forced expiration spirometry demonstrates no evidence of a large airways obstructive ventilatory defect. There was no significant response to aerosolized bronchodilators. Spirograms are of good quality and plateau normally. Body plethysmography was performed and revealed an elevated TLC and RV, suggestive of underlying hyperinflation and air trapping. Diffusing capacity by single breath CO is reduced to 66% of predicted. When compared to previous pulmonary function studies from December 2017, there has been a 22% reduction in diffusing capacity. IMPRESSION: Moderate reduction in diffusing capacity noted. There has been a decrease in patient's DLCO by 22% since 2017, as noted above.
== END ==
PROVIDERS: PCP Family Medicine; Referring Provider Internal Medicine Cardiovascular Disease; Visit Provider Internal Medicine Cardiovascular Disease
DX: I42.2 Other hypertrophic cardiomyopathy (principal); I48.0 Paroxysmal atrial fibrillation; E78.5 Hyperlipidemia, unspecified; I10 Essential (primary) hypertension; I25.10 Atherosclerotic heart disease of native coronary artery without angina pectoris; Z79.899 Other long term (current) drug therapy; Z86.79 Personal history of other diseases of the circulatory system; Z95.810 Presence of automatic (implantable) cardiac defibrillator; Z98.890 Other specified postprocedural states
CPT/HCPCS: 94060; 94726; 94729

== ENCOUNTER → 2020-06-30 08:39 | Outpatient (CLI) | payer MEDICARE, SELFPAY ==
[2020-06-14 11:24] VITALS: BMI 32.8
[2020-06-30 10:05] LABS: Absolute Lymphocyte Count 3.78 X10^3/uL (0.83-4.51); Absolute Neutrophil Count 4.3 X10^3/uL (2.0-7.7); Basophil# 0.04 X10^3/uL; Basophil% 0.4 % (0-1); Eosinophil# 0.14 X10^3/uL; Eosinophils% 1.6 % (0-5); Hematocrit 47.6 % (37-47); Hemoglobin 15.3 g/dL (12.0-15.0); Lymphocyte # 3.78 X10^3/ul (0.83-4.51); Lymphocyte % 42.2 % (19-41); Mean Corp Hgb Conc 32.1 g/dL (32-36); Mean Corpuscular Hgb 30.4 pg (27.0-32.0); Mean Corpuscular Volume 94.6 fL (81-99); Mean Platelet Vol. 11.1 fl (6.2-12.0); Monocyte# 0.61 X10^3/uL; Monocyte% 6.8 % (0-10); NRBC Flagged by Analyzer 0 % (0-5); Neutrophil # 4.33 X10^3/uL (2.7-7.7); Neutrophil % 48.4 % (47-70); Platelet Count 257 K/mm3 (150-450); RBC Distribution Width CV 13.6 % (11.6-14.6); RBC Distribution Width SD 47.2 fl (35.1-43.9); Red Blood Count 5.03 M/mm3 (4.2-5.4)
[2020-06-30 10:46] LABS: AST(SGOT) 15 U/L (15-37); Alanine Aminotransfer ALT/SGPT 31 U/L (13-56); Albumin, Serum 3.5 g/dL (3.2-5.0); Alkaline Phosphatase 86 U/L (45-117); Anion Gap 5 (5-15); BUN 17 mg/dL (7-18); BUN/Creat Ratio 18.5 RATIO (10-20); Calcium,Total 9.1 mg/dL (8.5-10.1); Chloride 106 mmol/L (98-107); Cholesterol 238 mg/dL (200); Creatinine, Serum 0.92 mg/dL (0.55-1.02); EST Glomerular Filtration Rate 65 mL/min (>60); Est Glom Filt Rate - Afr Amer 78 mL/min (>60); Ferritin 62 ng/mL (8-252); Globulin 3.4 g/dL (2.2-4.2); Glucose 104 mg/dL (74-106); High Density Lipoprotein 37 mg/dL; Iron 70 ug/dL (50-170); Iron Binding Capacity,Total 414 ug/dL (250-450); Magnesium 2.2 mg/dL (1.6-2.6); Potassium 3.6 mmol/L (3.5-5.1); Protein, Total 6.9 g/dL (6.4-8.2); Sodium Level 139 mmol/L (136-145); Thyroid Stim Hormone (TSH) 2.33 uIU/mL (0.358-3.74); Triglycerides 402 mg/dL
[2020-07-01 19:54] LABS: Transferrin 297 mg/dL (192-364)
[2020-07-03 14:31] LABS: Hemoglobin A1c 5.9 % (3.8-5.6)
== END ==
PROVIDERS: PCP Family Medicine; Referring Provider Family Medicine; Visit Provider Family Medicine
DX: I10 Essential (primary) hypertension (principal); D75.1 Secondary polycythemia; I48.0 Paroxysmal atrial fibrillation; R73.09 Other abnormal glucose
CPT/HCPCS: 36415; 80053; 80061; 82728; 83036; 83540; 83550; 83735; 84443; 84466; 85025

== ENCOUNTER 2021-03-29 15:43 | Outpatient (CLI) | payer MEDICARE, SELFPAY | END 2021-03-29 23:59 | disposition short-term general hospital (02) | LOC: LABSPEC 15:44 | PROVIDERS: PCP Family Medicine; Referring Provider Family Medicine; Visit Provider Registered Nurse | DX: J06.9 Acute upper respiratory infection, unspecified (principal) | CPT/HCPCS: 87635; U0003; U0005 ==

== ENCOUNTER 2021-06-11 09:57 | Outpatient (CLI) | payer MEDICARE, SELFPAY ==
--- NOTE | 2021-06-11 10:27 | RAD_ITS ---
HISTORY: amiodarone therapy EXAMINATION/TECHNIQUE: XR Chest 2 Views COMPARISON: Two-view chest x-ray from 05/11/20 FINDINGS: LINES/DEVICES: Left AICD in place. Sternotomy wires present. Cholecystectomy clips noted. LUNGS: No focal airspace consolidation. No pulmonary edema. No pleural effusion. No pneumothorax. MEDIASTINUM AND CARDIOVASCULAR STRUCTURES: Cardiac silhouette not enlarged. Central airways and mediastinal contour are unremarkable. BONES AND SOFT TISSUES: No acute findings. RAD/Chest PA and Lateral IMPRESSION: No radiographic evidence of acute cardiopulmonary disease. at 0138 Reported and signed by: Juan M Lainez MD Electronically Signed: Juan M Lainez MD at 1:37 EDT ,
[2021-06-11 11:33] LABS: AST(SGOT) 13 U/L (15-37); Alanine Aminotransfer ALT/SGPT 32 U/L (13-56); Albumin, Serum 3.4 g/dL (3.2-5.0); Alkaline Phosphatase 88 U/L (45-117); Bilirubin, Direct 0.09 mg/dL (0.00-0.30); Cholesterol 289 mg/dL (200); Globulin 3.8 g/dL (2.2-4.2); High Density Lipoprotein 32 mg/dL; Protein, Total 7.2 g/dL (6.4-8.2); Thyroid Stim Hormone (TSH) 2.25 uIU/mL (0.358-3.74); Triglycerides 441 mg/dL
== END 2021-06-11 23:59 | disposition home or self-care (01) ==
LOC: LAB 09:59
PROVIDERS: PCP Family Medicine; Visit Provider Internal Medicine Cardiovascular Disease
DX: I48.0 Paroxysmal atrial fibrillation (principal); I47.1 Supraventricular tachycardia; I25.10 Atherosclerotic heart disease of native coronary artery without angina pectoris; E78.5 Hyperlipidemia, unspecified; Z79.899 Other long term (current) drug therapy; Z98.890 Other specified postprocedural states; Z86.79 Personal history of other diseases of the circulatory system; Z95.810 Presence of automatic (implantable) cardiac defibrillator
CPT/HCPCS: 36415; 71046; 80061; 80076; 84443

== ENCOUNTER 2021-06-14 09:19 | Outpatient (CLI) | payer MEDICARE, SELFPAY ==
--- NOTE | 2021-06-14 13:26 | PFTCOMP_ITS ---
COMPLETE PULMONARY FUNCTION TEST INTERPRETATION Brief HPI: Patient is a 70 year old female, currently under the care of Dr. Vernon, who presents to [facility] [place] for complete pulmonary function tests secondary to diagnosis of high risk med use. Respiratory therapist reports good effort and reproducible results. Interpretation: Forced expiration spirometry shows no large airways obstructive ventilatory defect with an FEV1 of 83% predicted. There is no significant bronchodilator response by strict ATS criteria. Spirograms are of good quality and plateau normally. The respiratory flow volume loop shows a normal pattern. Lung volumes by body plethysmography show a normal total lung capacity at 4.35 L, 98% predicted. All other lung volumes are within normal limits. Diffusion capacity by carbon monoxide is normal at 80% predicted. The airway resistance is elevated. Compared to previous pulmonary function tests from 05/25/2020, there is been significant improvement in DLCO and air trapping. Impression: These pulmonary function tests are within normal limits and show improvement compared to previous.
== END 2021-06-14 23:59 | disposition home or self-care (01) ==
LOC: PSN 09:19
PROVIDERS: PCP Family Medicine; Referring Provider Internal Medicine Cardiovascular Disease; Visit Provider Internal Medicine Cardiovascular Disease
DX: E78.5 Hyperlipidemia, unspecified (principal); I47.1 Supraventricular tachycardia; I48.0 Paroxysmal atrial fibrillation; I25.10 Atherosclerotic heart disease of native coronary artery without angina pectoris; Z79.899 Other long term (current) drug therapy; Z98.890 Other specified postprocedural states; Z86.79 Personal history of other diseases of the circulatory system; Z95.810 Presence of automatic (implantable) cardiac defibrillator
CPT/HCPCS: 94060; 94726; 94729

== ENCOUNTER → 2021-07-11 | Outpatient (CLI) | payer MEDICARE, SELFPAY ==
[2021-07-11 14:23] LABS: Bacteria 0 SEEN /hpf (None Seen); Mucous, Urine 0 SEEN /hpf (<or=2+); Red Blood Cells-Urine 0 SEEN /hpf (0-5); Squamous Epithelial Cells - UA 0 SEEN /hpf (5-10)
[2021-07-11 17:45] LABS: Absolute Lymphocyte Count 2.94 X10^3/uL (0.83-4.51); Absolute Neutrophil Count 5.9 X10^3/uL (2.0-7.7); Basophil# 0.03 X10^3/uL; Basophil% 0.3 % (0-1); Eosinophil# 0.22 X10^3/uL; Eosinophils% 2.3 % (0-5); Hematocrit 46.5 % (37-47); Hemoglobin 15.4 g/dL (12.0-15.0); Lymphocyte # 2.94 X10^3/ul (0.83-4.51); Lymphocyte % 30.3 % (19-41); Mean Corp Hgb Conc 33.1 g/dL (32-36); Mean Corpuscular Hgb 30.1 pg (27.0-32.0); Mean Platelet Vol. 10.8 fl (6.2-12.0); Monocyte% 6.2 % (0-10); NRBC Flagged by Analyzer 0 % (0-5); Neutrophil # 5.85 X10^3/uL (2.7-7.7); Neutrophil % 60.4 % (47-70); Platelet Count 261 K/mm3 (150-450); RBC Distribution Width CV 13.6 % (11.6-14.6); RBC Distribution Width SD 46.1 fl (35.1-43.9); Red Blood Count 5.11 M/mm3 (4.2-5.4); White Blood Count 9.7 K/mm3 (4.4-11.0)
[2021-07-11 18:31] LABS: Color, Urine Yellow (Yellow); Glucose, Dipstick Normal (Normal); Ketone-Dipstick Negative (Negative); Leukocyte Esterase-Dipstick 100 /ul (Negative); Nitrite-Dipstick Negative (Negative); Occult Blood-Urine 10 /ul (Negative); Protein-Dipstick Negative (Negative); Specific Gravity, Urine 1.015 (1.002-1.030); Urine Bilirubin Dipstick Negative (Negative); Urine Clarity Clear (Clear); Urine Urobilinogen Normal (Normal)
[2021-07-11 18:44] LABS: White Blood Cells 0-5 SEEN /hpf (0-5)
[2021-07-11 18:54] LABS: AST(SGOT) 22 U/L (15-37); Alanine Aminotransfer ALT/SGPT 39 U/L (13-56); Albumin, Serum 3.5 g/dL (3.2-5.0); Alkaline Phosphatase 94 U/L (45-117); Anion Gap 6 (5-15); BUN 16 mg/dL (7-18); BUN/Creat Ratio 15.7 RATIO (10-20); Calcium,Total 8.8 mg/dL (8.5-10.1); Chloride 106 mmol/L (98-107); Cholesterol 174 mg/dL (200); Creatinine, Serum 1.02 mg/dL (0.55-1.02); EST Glomerular Filtration Rate 57 mL/min (>60); Est Glom Filt Rate - Afr Amer 69 mL/min (>60); Globulin 3.5 g/dL (2.2-4.2); Glucose 83 mg/dL (74-106); High Density Lipoprotein 30 mg/dL; Magnesium 1.9 mg/dL (1.6-2.6); Potassium 3.5 mmol/L (3.5-5.1); Sodium Level 140 mmol/L (136-145); Thyroid Stim Hormone (TSH) 1.24 uIU/mL (0.358-3.74); Triglycerides 356 mg/dL; Very Low Density Lipoprotein 71 mg/dL (5-40)
== END | disposition home or self-care (01) ==
LOC: MTLAB 14:15
PROVIDERS: PCP Family Medicine; Referring Provider Family Medicine; Visit Provider Family Medicine
DX: D75.1 Secondary polycythemia (principal); I48.0 Paroxysmal atrial fibrillation; R73.02 Impaired glucose tolerance (oral); E78.1 Pure hyperglyceridemia; F17.200 Nicotine dependence, unspecified, uncomplicated
CPT/HCPCS: 80053; 80061; 81001; 83036; 83735; 84443; 85025

== ENCOUNTER → 2021-07-27 | Outpatient (CLI) | payer MEDICARE, SELFPAY ==
--- NOTE | 2021-07-27 19:00 | CT_ITS ---
EXAM: CT ANGIOGRAPHY ABDOMEN WITHOUT AND WITH INTRAVENOUS CONTRAST CLINICAL INDICATION: History of blood clots TECHNIQUE: Helically acquired angiography images of the abdomen without and with intravenous contrast. This CT exam was performed using one or more of the following dose reduction techniques: automated exposure control, adjustment of the mA and/or kV according to patient size, and/or use of iterative reconstruction technique. This report was created using [employer] report generation technology. MIP reconstructed images were created and reviewed. CONTRAST: IV 100mL Isovue-370 RADIATION DOSE: CTDIvol = 20.56 mGy, DLP = 760.63 mGy-cm COMPARISON: None. FINDINGS: AORTA: Atherosclerosis of the abdominal aorta. 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 Atherosclerosis of the bilateral common iliac arteries without hemodynamically significant stenosis. CELIAC TRUNK AND MESENTERIC ARTERIES: The celiac axis has a typical bifurcation pattern with normal-appearing left gastric artery, splenic artery and common hepatic artery. Superior mesenteric artery is widely patent. Replaced right hepatic artery arising from the SMA. The inferior mesenteric artery is patent. RENAL ARTERIES: Right renal artery is widely patent. Left renal arteries are also patent. LOWER THORAX: Unremarkable. Lung bases are clear. No cardiomegaly. No significant pericardial effusion. LIVER: See above. GALLBLADDER AND BILE DUCTS: Cholecystectomy. No intra- or extrahepatic biliary ductal dilation. PANCREAS: Unremarkable. No focal cystic or solid mass. SPLEEN: Unremarkable. No focal cystic or solid mass. ADRENALS: Unremarkable. No nodules. KIDNEYS AND URETERS: Unremarkable. Normal renal size and position. No hydronephrosis. STOMACH AND BOWEL: See above. INTRAPERITONEAL SPACE: Unremarkable. No ascites or other fluid collection. No free air. BONES/JOINTS: Unremarkable. No suspicious lytic or blastic abnormality. SOFT TISSUES: Unremarkable. No discrete abdominal or pelvic wall hernia. LYMPH NODES: No enlarged lymph nodes. TUBES, LINES AND DEVICES: Neurostimulator device with lead extending anterior to the sacrum. 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 Electronically Signed: Kris Perez MD ([place]) at 20:53 EDT ,
--- NOTE | 2021-07-27 19:12 | RAD_ITS ---
STUDY: X-RAY CHEST REASON FOR EXAM: Female, 70 years old. amiodarone therapy TECHNIQUE: PA and lateral views of the chest. COMPARISON: 06/11/2021 FINDINGS: Cardiac conduction device is stable. Sternal wires present. The lungs are clear and expanded. There is no demonstrated pleural abnormality. Normal size heart. Normal mediastinum and wilmer. Normal visualized pulmonary arteries. Normal visualized aortic arch and descending thoracic aorta. There is demineralization of the osseous structures. Normal visualized ribs, clavicles, and shoulders. There is no demonstrated abnormality of the visualized soft tissue structures of the upper abdomen. RAD/Chest PA and Lateral IMPRESSION: Stable, nonacute x-ray examination of the chest. Electronically Signed: Kris Perez MD ([place]) at 20:44 EDT ,
== END | disposition home or self-care (01) ==
LOC: CT 18:58
PROVIDERS: PCP Family Medicine; Visit Provider Family Medicine
DX: D75.1 Secondary polycythemia (principal); I47.1 Supraventricular tachycardia; E78.5 Hyperlipidemia, unspecified; I10 Essential (primary) hypertension; I25.10 Atherosclerotic heart disease of native coronary artery without angina pectoris; Z98.890 Other specified postprocedural states; Z95.810 Presence of automatic (implantable) cardiac defibrillator; Z86.79 Personal history of other diseases of the circulatory system
CPT/HCPCS: 71046; 74175; Q9967

== ENCOUNTER → 2021-09-28 | Outpatient (CLI) | payer MEDICARE, SELFPAY ==
--- NOTE | 2021-09-28 10:00 | AAVD_ITS ---
Reason For Study: Iliac artery stenosis Aorta Measurements Aorta Doppler Measurements Proximal aorta measures1.99 x 1.99cm. in cross- Peak systolic flow velocities within the proximal sectional axis. aorta measure 63.9 cm/sec. Proximal aorta measures2.00cm. in longitudinal Peak systolic flow velocities within the mid aorta axis. measure 73.2 cm/sec. Mid aorta measures1.58 x 1.58cm. in cross- Peak systolic flow velocities within the distal sectional axis. aorta measure 97.9 cm/sec. Mid aorta measures1.59cm. in longitudinal axis. Distal aorta measures1.65 x 1.65cm. in cross- sectional axis. Distal aorta measures1.63cm. in longitudinal axis. Left Iliac Artery Left iliac artery measures 0.89 x 0.89 cm. in the cross-sectional axis. Left iliac artery measures 0.83 cm. in the longitudinal axis. Peak systolic velocity in the left iliac artery measures 150.9 cm/sec. Right Iliac Artery Right iliac artery measures 0.76 x 0.75 cm. in the cross-sectional axis. Right iliac artery measures 0.72 cm. in the longitudinal axis. Peak systolic velocity in the right iliac artery measures 114.3 cm/sec. Procedure Aorta IVC Iliac vasculature or bypass grafts [id number]. Exam performed in department. VL/Abd Aortic/IVC Duplex scan Interpretation Summary Aortic iliac no aneurysm or stenosis visualized. Ordering Physician: Elvis Mensah Referring Physician: Mateo Robles Performed By: Stefany Mantilla RVT
--- NOTE | 2021-09-28 10:00 | ART_ITS ---
Reason For Study: Atheroscerolsis Procedure A bilateral lower extremity continuous wave Doppler with analog waveform analysis and ankle brachial indexes. Left Segmental Pressures Left brachial= 154mmHg. Left posterior tibial artery = 170mmHg. Left dorsalis pedis artery = 159mmHg. The left dorsalis pedis waveforms are triphasic. The left posterior tibial artery waveforms are triphasic. Right Segmental Pressures Right brachial= 147mmHg. Right posterior tibial artery = 179mmHg. Right dorsalis pedis artery = 168mmHg. The right dorsalis pedis waveforms are triphasic. The right posterior tibial artery waveforms are triphasic. Indices The right ankle brachial index by the dorsalis pedis is 1.09. The right ankle brachial index by the posterior tibial artery is 1.16. The left ankle brachial index by the dorsalis pedis is 1.03. The left ankle brachial index by the posterior tibial artery is 1.10. VL/Ankle Brachial Index Interpretation Summary Bilateral lower extremities with no evidence of significant occlusive disease a t rest with bilateral triphasic flow and an JESUS of 1.16 and 1.1. Ordering Physician: Elvis Mensah Referring Physician: Mateo Robles Performed By: Stefany Mantilla RVT
== END | disposition home or self-care (01) ==
LOC: CVS 09:56
PROVIDERS: PCP Family Medicine; Referring Provider Surgery Vascular Surgery; Visit Provider Surgery Vascular Surgery
DX: I70.213 Atherosclerosis of native arteries of extremities with intermittent claudication, bilateral legs (principal); I70.0 Atherosclerosis of aorta; I77.1 Stricture of artery; E78.70 Disorder of bile acid and cholesterol metabolism, unspecified; J45.909 Unspecified asthma, uncomplicated; I51.9 Heart disease, unspecified; M79.89 Other specified soft tissue disorders; Z95.810 Presence of automatic (implantable) cardiac defibrillator; Z72.0 Tobacco use; Z86.718 Personal history of other venous thrombosis and embolism
CPT/HCPCS: 93922; 93978

== ENCOUNTER → 2022-07-24 | Outpatient (CLI) | payer MEDICARE, SELFPAY ==
[2022-07-24 08:32] LABS: Bacteria 0 SEEN /hpf (None Seen); Mucous, Urine 0 SEEN /hpf (<or=2+)
[2022-07-24 10:39] LABS: Absolute Lymphocyte Count 4.46 X10^3/uL (0.83-4.51); Basophil# 0.03 X10^3/uL; Basophil% 0.3 % (0-1); Eosinophil# 0.06 X10^3/uL; Eosinophils% 0.6 % (0-5); Hematocrit 49.2 % (37-47); Hemoglobin 15.9 g/dL (12.0-15.0); Lymphocyte # 4.46 X10^3/ul (0.83-4.51); Lymphocyte % 43.2 % (19-41); Mean Corp Hgb Conc 32.3 g/dL (32-36); Mean Corpuscular Hgb 30.7 pg (27.0-32.0); Mean Platelet Vol. 10.5 fl (6.2-12.0); Monocyte% 6.8 % (0-10); NRBC Flagged by Analyzer 0 % (0-5); Neutrophil % 48.4 % (47-70); Platelet Count 269 K/mm3 (150-450); RBC Distribution Width CV 14.1 % (11.6-14.6); RBC Distribution Width SD 49.2 fl (35.1-43.9); Red Blood Count 5.18 M/mm3 (4.2-5.4); White Blood Count 10.3 K/mm3 (4.4-11.0)
[2022-07-24 10:40] LABS: Hemoglobin A1c 5.7 % (3.8-5.6)
[2022-07-24 10:41] LABS: ALB/GLOB Ratio 0.9 RATIO (0.9-2.4); AST(SGOT) 13 U/L (15-37); Alanine Aminotransfer ALT/SGPT 28 U/L (13-56); Albumin, Serum 3.3 g/dL (3.2-5.0); Alkaline Phosphatase 95 U/L (45-117); Anion Gap 11 (5-15); BUN 23 mg/dL (7-18); BUN/Creat Ratio 23.3 RATIO (10-20); Calcium,Total 9.1 mg/dL (8.5-10.1); Chloride 108 mmol/L (98-107); Cholesterol 232 mg/dL (200); Creatinine, Serum 0.99 mg/dL (0.55-1.02); EST Glomerular Filtration Rate 59 mL/min (>60); Est Glom Filt Rate - Afr Amer 72 mL/min (>60); Ferritin 54 ng/mL (8-252); Globulin 3.8 g/dL (2.2-4.2); Glucose 97 mg/dL (74-106); High Density Lipoprotein 35 mg/dL; Iron 54 ug/dL (50-170); Iron Binding Capacity,Total 415 ug/dL (250-450); Potassium 3.9 mmol/L (3.5-5.1); Protein, Total 7.1 g/dL (6.4-8.2); Sodium Level 140 mmol/L (136-145); Triglycerides 242 mg/dL; Very Low Density Lipoprotein 48 mg/dL (5-40)
[2022-07-24 11:06] LABS: Color, Urine Yellow (Yellow); Glucose, Dipstick Normal (Normal); Ketone-Dipstick Negative (Negative); Leukocyte Esterase-Dipstick 25 /ul (Negative); Nitrite-Dipstick Negative (Negative); Occult Blood-Urine 10 /ul (Negative); Protein-Dipstick Negative (Negative); Specific Gravity, Urine 1.025 (1.002-1.030); Urine Bilirubin Dipstick Negative (Negative); Urine Clarity Clear (Clear); Urine Urobilinogen Normal (Normal)
[2022-07-24 11:44] LABS: Red Blood Cells-Urine 0-5 SEEN /hpf (0-5); Squamous Epithelial Cells - UA 0-5 SEEN /hpf (5-10); White Blood Cells 0-5 SEEN /hpf (0-5)
== END | disposition home or self-care (01) ==
LOC: MFPLAB 08:26
PROVIDERS: PCP Family Medicine; Visit Provider Family Medicine
DX: D75.1 Secondary polycythemia (principal); I48.0 Paroxysmal atrial fibrillation; E78.5 Hyperlipidemia, unspecified; R73.02 Impaired glucose tolerance (oral); F17.200 Nicotine dependence, unspecified, uncomplicated
CPT/HCPCS: 36415; 80053; 80061; 81001; 82728; 83036; 83540; 83550; 85025

== ENCOUNTER → 2022-10-08 | Outpatient (CLI) | payer MEDICARE, SELFPAY ==
--- NOTE | 2022-10-08 08:08 | ART_ITS ---
Reason For Study: Iliac artery stenosis Procedure A bilateral lower extremity continuous wave Doppler with analog waveform analysis and ankle brachial indexes. Left Segmental Pressures Left brachial= 131mmHg. Left posterior tibial artery = 142mmHg. Left dorsalis pedis artery = 136mmHg. Left digit = 120 mmHg. The left dorsalis pedis waveforms are triphasic. The left posterior tibial artery waveforms are triphasic. Right Segmental Pressures Right brachial= 129mmHg. Right posterior tibial artery = 155mmHg. Right dorsalis pedis artery = 126mmHg. Right digit = 105 mmHg. The right dorsalis pedis waveforms are triphasic. The right posterior tibial artery waveforms are triphasic. Indices The right ankle brachial index by the dorsalis pedis is 0.96. The right ankle brachial index by the posterior tibial artery is 1.18. The right digital-brachial index is 0.80. The left ankle brachial index by the dorsalis pedis is 1.04. The left ankle brachial index by the posterior tibial artery is 1.08. The left digital-brachial index is 0.92. VL/Ankle Brachial Index Interpretation Summary Normal at rest with triphasic flow and JESUS 1.18 and 1.08. DBI 0.8 and 0.92. Ordering Physician: Elvis Mensah Referring Physician: Mateo Robles Performed By: Stefany Mantilla RVT
--- NOTE | 2022-10-08 08:08 | AAVD_ITS ---
Reason For Study: Iliac artery stenosis Aorta Measurements Aorta Doppler Measurements Proximal aorta measures2.06 x 1.94cm. in cross- Peak systolic flow velocities within the proximal sectional axis. aorta measure 83.2 cm/sec. Proximal aorta measures2.03cm. in longitudinal Peak systolic flow velocities within the mid aorta axis. measure 75.9 cm/sec. Mid aorta measures1.47 x 1.45cm. in cross- Peak systolic flow velocities within the distal sectional axis. aorta measure 114 cm/sec. Mid aorta measures1.46cm. in longitudinal axis. Distal aorta measures1.52 x 1.52cm. in cross- sectional axis. Distal aorta measures1.50cm. in longitudinal axis. Left Iliac Artery Left iliac artery measures 0.82 x 0.76 cm. in the cross-sectional axis. Left iliac artery measures 0.78 cm. in the longitudinal axis. Peak systolic velocity in the left iliac artery measures 153.4 cm/sec. Right Iliac Artery Right iliac artery measures 0.70 x 0.74 cm. in the cross-sectional axis. Right iliac artery measures 0.75 cm. in the longitudinal axis. Peak systolic velocity in the right iliac artery measures 130.3 cm/sec. Procedure Aorta IVC Iliac vasculature or bypass grafts [id number]. Exam performed in department. VL/Abd Aortic/IVC Duplex scan Interpretation Summary Aorta iliac normal with no aneurysm or stenosis. Ordering Physician: Elvis Mensah Referring Physician: Mateo Robles Performed By: Stefany Mantilla RVT
== END | disposition home or self-care (01) ==
PROVIDERS: PCP Family Medicine; Referring Provider Surgery Vascular Surgery; Visit Provider Surgery Vascular Surgery
DX: I71.02 Dissection of abdominal aorta (principal); I70.213 Atherosclerosis of native arteries of extremities with intermittent claudication, bilateral legs; I77.1 Stricture of artery; Z72.0 Tobacco use
CPT/HCPCS: 93922; 93978

== ENCOUNTER → 2023-05-15 | Outpatient (CLI) | payer MEDICARE, SELFPAY ==
[2023-05-15 16:31] LABS: Absolute Lymphocyte Count 3.94 X10^3/uL (0.83-4.51); Absolute Neutrophil Count 6.3 X10^3/uL (2.0-7.7); Basophil# 0.04 X10^3/uL; Basophil% 0.4 % (0-1); Eosinophil# 0.12 X10^3/uL; Eosinophils% 1.1 % (0-5); Hematocrit 45.4 % (37-47); Hemoglobin 14.9 g/dL (12.0-15.0); Lymphocyte # 3.94 X10^3/ul (0.83-4.51); Lymphocyte % 35.4 % (19-41); Mean Corp Hgb Conc 32.8 g/dL (32-36); Mean Corpuscular Hgb 29.7 pg (27.0-32.0); Mean Corpuscular Volume 90.4 fL (81-99); Mean Platelet Vol. 10.9 fl (6.2-12.0); Monocyte# 0.71 X10^3/uL; Monocyte% 6.4 % (0-10); NRBC Flagged by Analyzer 0 % (0-5); Neutrophil # 6.25 X10^3/uL (2.7-7.7); Neutrophil % 56.2 % (47-70); Platelet Count 238 K/mm3 (150-450); RBC Distribution Width CV 13.4 % (11.6-14.6); RBC Distribution Width SD 44.2 fl (35.1-43.9); Red Blood Count 5.02 M/mm3 (4.2-5.4); White Blood Count 11.1 K/mm3 (4.4-11.0)
[2023-05-15 16:32] LABS: POSITIVE COUNT NO; POSITIVE DIFFERENTIAL NO; POSITIVE MORPHOLOGY NO
[2023-05-15 16:58] LABS: ALB/GLOB Ratio 0.9 RATIO (0.9-2.4); AST(SGOT) 12 U/L (15-37); Alanine Aminotransfer ALT/SGPT 22 U/L (13-56); Albumin, Serum 3.3 g/dL (3.2-5.0); Alkaline Phosphatase 85 U/L (45-117); Anion Gap 5 (5-15); BUN 15 mg/dL (7-18); BUN/Creat Ratio 19.1 RATIO (10-20); Bilirubin, Direct 0.07 mg/dL (0.00-0.30); Calcium,Total 8.8 mg/dL (8.5-10.1); Chloride 112 mmol/L (98-107); Cholesterol 217 mg/dL (200); Creatinine, Serum 0.79 mg/dL (0.55-1.02); EST Glomerular Filtration Rate 77 mL/min (>60); Est Glom Filt Rate - Afr Amer 93 mL/min (>60); Globulin 3.6 g/dL (2.2-4.2); Glucose 84 mg/dL (74-106); High Density Lipoprotein 36 mg/dL; Potassium 3.3 mmol/L (3.5-5.1); Protein, Total 6.9 g/dL (6.4-8.2); Sodium Level 142 mmol/L (136-145); Thyroid Stim Hormone (TSH) 2.79 uIU/mL (0.358-3.74); Triglycerides 275 mg/dL; Very Low Density Lipoprotein 55 mg/dL (5-40)
[2023-05-15 17:33] LABS: Hepatitis C Antibody Non-Reactive (Nonreactive); Vitamin D,25 Hydroxy 8.1 ng/mL
== END | disposition home or self-care (01) ==
PROVIDERS: Internal Medicine Cardiovascular Disease; PCP Family Medicine Geriatric Medicine; Visit Provider Family Medicine Geriatric Medicine
DX: Z13.89 Encounter for screening for other disorder (principal); E55.9 Vitamin D deficiency, unspecified; E78.5 Hyperlipidemia, unspecified
CPT/HCPCS: 80053; 80061; 82248; 82306; 84443; 85025; 86803

== ENCOUNTER → 2023-05-26 | Outpatient (CLI) | payer MEDICARE, SELFPAY ==
[2023-05-26 13:54] LABS: Anion Gap 4 (5-15); BUN 20 mg/dL (7-18); BUN/Creat Ratio 19.6 RATIO (10-20); Calcium,Total 9.4 mg/dL (8.5-10.1); Chloride 110 mmol/L (98-107); Creatinine, Serum 1.02 mg/dL (0.55-1.02); EST Glomerular Filtration Rate 57 mL/min (>60); Est Glom Filt Rate - Afr Amer 69 mL/min (>60); Glucose 105 mg/dL (74-106); Potassium 3.4 mmol/L (3.5-5.1); Sodium Level 140 mmol/L (136-145)
== END | disposition home or self-care (01) ==
LOC: LAB 12:19
PROVIDERS: PCP Family Medicine Geriatric Medicine; Referring Provider Internal Medicine Cardiovascular Disease; Visit Provider Internal Medicine Cardiovascular Disease
DX: I10 Essential (primary) hypertension (principal)
CPT/HCPCS: 36415; 80048

== ENCOUNTER → 2023-06-26 | Outpatient (CLI) | payer MEDICARE, SELFPAY ==
--- NOTE | 2023-06-26 08:25 | BD_ITS ---
STUDY: DUAL ENERGY X-RAY ABSORPTIOMETRY / DXA REASON FOR EXAM: Female, 72 years old. M810 TECHNIQUE: Bone Mineral Density (BMD) measurements of both forearms were obtained. COMPARISON: None. FINDINGS: Right Forearm: g/cm2 (0.577) / T-score (0.0) / Z-score (2.0) Left Forearm: g/cm2 (0.538) / T-score (-0.8) / Z-score (1.3) BD/Dexa Bone Density/Append Skel IMPRESSION: The patient is considered normal as outlined below according to World Alfredo Organization (WHO) criteria with a low fracture risk. Reference Information: The T-score is the number of standard deviations above or below the standard which is normal for young adults at their peak bone mineral density. The World Health Organization (WHO) interprets the T-scores as follows: Above -1 Normal bone density Between -1 and -2.5 Osteopenia Equal to / or below -2.5 Osteoporosis As a practical clinical guideline, osteopenia may be graded as follows: Mild -1 through -1.5 Moderate -1.6 through -2.0 Severe -2.1 through -2.4 The Z-score is the number of standard deviations above or below age-matched controls. A Z-score of less than -1.5 would be considered abnormal. References: 1. NIH Osteoporosis and Related Bone Diseases www osteo.org 2. International Society for Clinical Densitometry www iscd.org 3. National Osteoporosis Foundation www nof.org Electronically Signed: Yair Chahal MD at 8:47 EDT ,
--- NOTE | 2023-06-26 08:25 | BI_ITS ---
MAMMOGRAPHY - BILATERAL SCREENING REASON FOR EXAM: Female, 72 years old. Routine annual screening examination. PERTINENT HISTORY: Non-contributory. TECHNIQUE: Digital bilateral breast josefina (3D mammographic acquisition) in the CC and MLO projections. 2-D mediolateral oblique (MLO) and craniocaudad (CC) views of both breasts were obtained. CAD: Full Field Digital Mammography with Computer Added Detection was performed. COMPARISON: Comparison is made with prior study dated April 19, 2015 and January 30, 2010. FINDINGS: Breast Composition: The breasts are almost entirely fatty. There are no dominant masses or suspicious calcifications. Stable bilateral fat-containing axillary lymph nodes. A battery pack of a pacemaker is seen in the left axilla. No other significant abnormalities are identified. There has been no significant change since the prior study. BI/SCRN MAMM (CAD)W/JOSEFINA BILAT IMPRESSION: Stable bilateral screening mammogram. Yearly follow-up mammogram recommended. (A) ASSESSMENT CATEGORY: BIRADS Category 2: Benign. A letter regarding these results will be sent to the patient by the facility within 30 days. Approximately 10% of breast cancers are not detected by mammography. A normal mammogram should not delay biopsy of a clinically suspicious abnormality. [id number] Electronically Signed: Yair Chahal MD at 9:43 EDT ,
== END | disposition home or self-care (01) ==
PROVIDERS: PCP Family Medicine Geriatric Medicine; Referring Provider Internal Medicine Cardiovascular Disease; Visit Provider Family Medicine Geriatric Medicine
DX: Z12.31 Encounter for screening mammogram for malignant neoplasm of breast (principal); Z78.0 Asymptomatic menopausal state
CPT/HCPCS: 77063; 77067; 77081

== ENCOUNTER → 2023-07-09 | Outpatient (CLI) | payer MEDICARE, SELFPAY ==
--- NOTE | 2023-07-09 13:01 | ECHOCS_ITS ---
Reason For Study: Dyspnea/SOB, Septal Myectomy Procedure This was a 2D Doppler, Color Flow transthoracic echocardiogram. The study was technically difficult. Contrast injection was performed. Exam performed in department. Left Ventricle Normal LV size. The estimated ejection fraction is 60-65 %. Unable to assess diastolic dysfunction. No regional wall motion abnormalities noted. Right Ventricle Normal RV size. There is a pacemaker lead in the right ventricle. Normal systolic function. Atria The left and right atria are normal. Normal right atrium. ICD or pacer leads identified within the right atrium. No doppler evidence for ASD. Mitral Valve There is severe mitral annular calcification. There is no mitral valve stenosis. Trivial mitral valve insufficiency. Tricuspid Valve There is no tricuspid stenosis. Trivial tricuspid valve insufficiency. Unable to estimate RV systolic pressure due to insufficient tricuspid regurgitant envelope. Aortic Valve Trisinus/trileaflet aortic valve. There is no aortic stenosis. Trivial aortic valve insufficiency. Pulmonic Valve There is no pulmonic valvular stenosis. No pulmonic valve insufficiency. Great Vessels Normal aortic root. Pericardium/Pleural No pericardial effusion. Medication 22 gauge I.V. with prn adaptor inserted into right arm. Diluted definity 3.5ml given slow IV push to enhance endocardial definition. MMode/2D Measurements & Calculations LVIDd: 4.4 cm IVSd: 1.3 cm LA dimension: 4.5 cm LVIDs: 3.0 cm LVPWd: 1.1 cm FS: 31.6 % LAV(MOD-bp): 52.1 ml LVAd ap4: 28.4 cm2 SV(MOD-sp4): 51.2 ml LAV(MOD-bp) Indexed: 28.2 ml/m2 LVLd ap4: 8.4 cm LAV(MOD-sp2): 49.0 ml EDV(MOD-sp4): 77.0 ml LAV(MOD-sp4): 54.9 ml EDV(sp4-el): 81.8 ml LVAs ap4: 14.9 cm2 LVLs ap4: 6.9 cm ESV(MOD-sp4): 25.8 ml ESV(sp4-el): 27.5 ml EF(MOD-sp4): 66.5 % EF(sp4-el): 66.4 % SV(sp4-el): 54.3 ml LA A4 area: 19.8 cm2 RA A4 area: 12.3 cm2 TAPSE: 1.5 cm Time Measurements MV dec time: 0.40 sec Doppler Measurements & Calculations MV E max artemio: 85.1 cm/sec Lat Peak E' Artemio: 6.6 cm/sec Med Peak E' Artemio: 4.0 cm/sec MV A max artemio: 131.4 cm/sec E/E' lat: 13.0 E/E' med: 21.0 MV E/A: 0.65 MV V2 max: 137.5 cm/sec MV P1/2t max artemio: 109.8 cm/sec Ao V2 max: 178.5 cm/sec MV max P.6 mmHg MV P1/2t: 138.0 msec Ao max P.8 mmHg MV V2 mean: 74.7 cm/sec Ao V2 mean: 126.1 cm/sec MV mean P.6 mmHg MV dec slope: 233.1 cm/sec2 Ao mean P.1 mmHg MV V2 VTI: 38.0 cm MVA(P1/2t): 1.6 cm2 Ao V2 VTI: 36.6 cm AV (velocity ratio): 0.94 AI max artemio: 418.0 cm/sec LV V1 max: 163.8 cm/sec MR max artemio: 509.6 cm/sec AI max P.9 mmHg LV V1 max P.7 mmHg MR max P.9 mmHg LV V1 mean P.2 mmHg AI dec slope: 235.7 cm/sec2 LV V1 mean: 118.0 cm/sec AI P1/2t: 519.5 msec LV V1 VTI: 34.4 cm PA V2 max: 107.3 cm/sec TR max artemio: 223.1 cm/sec PA V2 mean: 71.0 cm/sec TR max P.9 mmHg ECHO/Echo Complete W/ Contrast Interpretation Summary The estimated ejection fraction is 60-65 %. Unable to assess diastolic dysfunction. Trivial mitral valve insufficiency. Trivial aortic valve insufficiency. Ordering Physician: Max Kirkpatrick Referring Physician: Max Kirkpatrick Performed By: Sammy Mandel RCS
== END | disposition home or self-care (01) ==
LOC: CVS 13:00
PROVIDERS: PCP Family Medicine Geriatric Medicine; Referring Provider Internal Medicine Cardiovascular Disease; Visit Provider Internal Medicine Cardiovascular Disease
DX: R06.02 Shortness of breath (principal); Z98.890 Other specified postprocedural states
CPT/HCPCS: 93306; Q9957; A4216; C8929

== ENCOUNTER → 2023-11-13 | Outpatient (CLI) | payer MEDICARE, SELFPAY ==
[2023-11-13 14:49] LABS: Absolute Lymphocyte Count 4.41 X10^3/uL (0.83-4.51); Absolute Neutrophil Count 5.6 X10^3/uL (2.0-7.7); Basophil# 0.05 X10^3/uL; Basophil% 0.5 % (0-1); Eosinophil# 0.14 X10^3/uL; Eosinophils% 1.3 % (0-5); Hematocrit 49.1 % (37-47); Hemoglobin 16.1 g/dL (12.0-15.0); Lymphocyte # 4.41 X10^3/ul (0.83-4.51); Lymphocyte % 40.6 % (19-41); Mean Corp Hgb Conc 32.8 g/dL (32-36); Mean Corpuscular Hgb 29.7 pg (27.0-32.0); Mean Corpuscular Volume 90.6 fL (81-99); Mean Platelet Vol. 10.5 fl (6.2-12.0); Monocyte# 0.69 X10^3/uL; Monocyte% 6.3 % (0-10); NRBC Flagged by Analyzer 0 % (0-5); Neutrophil # 5.55 X10^3/uL (2.7-7.7); Platelet Count 231 K/mm3 (150-450); RBC Distribution Width CV 13.9 % (11.6-14.6); RBC Distribution Width SD 46.2 fl (35.1-43.9); Red Blood Count 5.42 M/mm3 (4.2-5.4); White Blood Count 10.9 K/mm3 (4.4-11.0)
[2023-11-13 15:40] LABS: ALB/GLOB Ratio 0.9 RATIO (0.9-2.4); AST(SGOT) 11 U/L (15-37); Alanine Aminotransfer ALT/SGPT 24 U/L (13-56); Albumin, Serum 3.5 g/dL (3.2-5.0); Alkaline Phosphatase 93 U/L (45-117); Anion Gap 6 (5-15); BUN 13 mg/dL (7-18); BUN/Creat Ratio 15.9 RATIO (10-20); Calcium,Total 9.2 mg/dL (8.5-10.1); Chloride 110 mmol/L (98-107); Cholesterol 298 mg/dL (200); Creatinine, Serum 0.82 mg/dL (0.55-1.02); EST Glomerular Filtration Rate 73 mL/min (>60); Est Glom Filt Rate - Afr Amer 89 mL/min (>60); Globulin 3.7 g/dL (2.2-4.2); Glucose 102 mg/dL (74-106); High Density Lipoprotein 32 mg/dL; Potassium 3.9 mmol/L (3.5-5.1); Protein, Total 7.2 g/dL (6.4-8.2); Sodium Level 140 mmol/L (136-145); Triglycerides 489 mg/dL
== END | disposition home or self-care (01) ==
LOC: POLAB3 14:06
PROVIDERS: PCP Family Medicine Geriatric Medicine; Visit Provider Family Medicine Geriatric Medicine
DX: E78.5 Hyperlipidemia, unspecified (principal); R53.83 Other fatigue; E55.9 Vitamin D deficiency, unspecified
CPT/HCPCS: 36415; 80053; 80061; 82306; 84443; 85025

== ENCOUNTER → 2023-12-02 | Outpatient (CLI) | payer MEDICARE, SELFPAY ==
[2023-12-02 15:52] LABS: Mucous, Urine 0 SEEN /hpf (<or=2+); Red Blood Cells-Urine 0 SEEN /hpf (0-5)
[2023-12-02 16:01] LABS: Color, Urine Yellow (Yellow); Glucose, Dipstick Normal (Normal); Ketone-Dipstick Negative (Negative); Leukocyte Esterase-Dipstick 100 /ul (Negative); Nitrite-Dipstick Negative (Negative); Occult Blood-Urine 10 /ul (Negative); Protein-Dipstick Negative (Negative); Specific Gravity, Urine 1.015 (1.002-1.030); Urine Bilirubin Dipstick Negative (Negative); Urine Clarity Clear (Clear); Urine Urobilinogen Normal (Normal)
[2023-12-02 16:36] LABS: Bacteria 1+ /hpf (None Seen); Squamous Epithelial Cells - UA 0-5 SEEN /hpf (5-10); White Blood Cells 0-5 SEEN /hpf (0-5)
== END | disposition home or self-care (01) ==
LOC: POLAB3 15:49
PROVIDERS: PCP Family Medicine Geriatric Medicine; Visit Provider Family Medicine Geriatric Medicine
DX: N39.0 Urinary tract infection, site not specified (principal); R82.90 Unspecified abnormal findings in urine
CPT/HCPCS: 81001; 87086; 87088

== ENCOUNTER → 2024-01-29 | Outpatient (CLI) | payer MEDICARE, SELFPAY | END | disposition home or self-care (01) | LOC: POLAB3 15:04 | PROVIDERS: PCP Family Medicine Geriatric Medicine; Visit Provider Family Medicine Geriatric Medicine | DX: R68.83 Chills (without fever) (principal) | CPT/HCPCS: 87631 ==

== ENCOUNTER → 2024-04-09 | Outpatient (CLI) | payer MEDICARE, SELFPAY ==
--- NOTE | 2024-04-09 12:58 | CT_ITS ---
STUDY: CT MAXILLOFACIAL SINUSES REASON FOR EXAM: Female, 73 years old. SINUSITIS RADIATION DOSAGE (If Supplied By Facility): CTDIvol = ( 33.06 ) mGy, DLP = ( 850.38 ) mGycm TECHNIQUE: The patient was scanned in a multi detector CT scanner. High resolution axial imaging was performed without the administration of intravenous contrast material. Sagittal and coronal images were reconstructed. Individualized dose optimization techniques were used for this CT. COMPARISON: None. FINDINGS: FRONTAL SINUSES: Normal aeration, without mucosal inflammatory disease. ETHMOIDAL SINUSES: Normal aeration, without mucosal inflammatory disease. MAXILLARY SINUSES: Mild degree of mucosal thickening of the inferior aspect of the maxillary sinus bilaterally. SPHENOIDAL SINUSES: Partial opacification of the right sphenoid sinus. There is patency of the bilateral maxillary infundibuli with normal uncinate processes, ethmoid bullae, and hiatus semilunaris. Normal bilateral middle turbinates. Normal bilateral inferior turbinates. Normal midline nasal septum. There is patency of the bilateral nasal airways. The visualized osseous structures are normal. The visualized bilateral orbital contents are normal. CT/Sinus/Facial Bone IMPRESSION: Mucosal thickening of the maxillary sinuses bilaterally along the inferior aspect. Partial opacification of the right sphenoid sinus. Electronically Signed: Yair Chahal MD at 10:05 [facility] ,
== END | disposition home or self-care (01) ==
PROVIDERS: PCP Family Medicine Geriatric Medicine; Referring Provider Otolaryngology; Visit Provider Otolaryngology
DX: J32.8 Other chronic sinusitis (principal)
CPT/HCPCS: 70486

== ENCOUNTER → 2024-05-18 | Outpatient (CLI) | payer MEDICARE, SELFPAY ==
[2024-05-18 15:27] LABS: Absolute Neutrophil Count 7.2 X10^3/uL (2.0-7.7); Basophil# 0.05 X10^3/uL; Basophil% 0.4 % (0-1); Eosinophil# 0.16 X10^3/uL; Eosinophils% 1.3 % (0-5); Hematocrit 50.7 % (37-47); Hemoglobin 16.8 g/dL (12.0-15.0); Lymphocyte % 35.2 % (19-41); Mean Corp Hgb Conc 33.1 g/dL (32-36); Mean Corpuscular Hgb 30.3 pg (27.0-32.0); Mean Corpuscular Volume 91.5 fL (81-99); Mean Platelet Vol. 10.5 fl (6.2-12.0); Monocyte# 0.83 X10^3/uL; Monocyte% 6.5 % (0-10); NRBC Flagged by Analyzer 0 % (0-5); Neutrophil # 7.19 X10^3/uL (2.7-7.7); Neutrophil % 56.1 % (47-70); Platelet Count 220 K/mm3 (150-450); RBC Distribution Width CV 13.9 % (11.6-14.6); Red Blood Count 5.54 M/mm3 (4.2-5.4); White Blood Count 12.8 K/mm3 (4.4-11.0)
[2024-05-18 20:09] LABS: ALB/GLOB Ratio 1.4 RATIO (0.9-2.4); AST(SGOT) 14 U/L (<=31); Alanine Aminotransfer ALT/SGPT 15 U/L (<=34); Alkaline Phosphatase 84 U/L (35-104); Anion Gap 11 (5-15); BUN 17 mg/dL (4-19); BUN/Creat Ratio 18.2 RATIO (10-20); Calcium,Total 9.2 mg/dL (7.6-11.0); Carbon Dioxide 22.5 mmol/L (21.0-32.0); Chloride 106 mmol/L (98-108); Cholesterol 285 mg/dL (<=200); Creatinine, Serum 0.92 mg/dL (0.70-1.20); EST Glomerular Filtration Rate 67 (>60); Globulin 2.8 g/dL (2.2-4.2); Glucose 103 mg/dL (70-99); High Density Lipoprotein 42 mg/dL; Low Density Lipoprotein Calc. 163 mg/dL; Potassium 4.2 mmol/L (3.3-5.1); Protein, Total 6.8 g/dL (5.9-8.4); Sodium Level 139 mmol/L (133-145); Total Bilirubin 0.24 mg/dL (0.00-1.30); Triglycerides 399 mg/dL; Very Low Density Lipoprotein 80 mg/dL (5-40); Vitamin D,25 Hydroxy 7.2 ng/mL (30-100); cholesterol:hdl ratio screen 6.75
== END | disposition home or self-care (01) ==
LOC: POLAB3 14:39
PROVIDERS: PCP Family Medicine Geriatric Medicine; Visit Provider Family Medicine Geriatric Medicine
DX: R53.83 Other fatigue (principal); E78.5 Hyperlipidemia, unspecified; E55.9 Vitamin D deficiency, unspecified
CPT/HCPCS: 36415; 80053; 80061; 82306; 84443; 85025

== ENCOUNTER → 2024-07-06 | Outpatient (CLI) | payer MEDICARE, SELFPAY ==
--- NOTE | 2024-07-06 07:00 | EKG12_ITS ---
Test Reason : PREOP Blood Pressure : */* mmHG Vent. Rate : 82 BPM Atrial Rate : 82 BPM P-R Int : 154 ms QRS Dur : 152 ms QT Int : 436 ms P-R-T Axes : -6 75 270 degrees QTcB Int : 509 ms Sinus rhythm with occasional Premature ventricular complexes Left bundle branch block Abnormal ECG Confirmed by MIKE VILLA, JOY ([id number]), acquisitions editor FLAQUITO RAMOS ([id number]) on 07/07/2024 9:43:40 AM Referred By: Bobby Hunter Confirmed By: JOY MCKEON MD
[2024-07-06 07:39] LABS: Hematocrit 49.3 % (37-47); Hemoglobin 16.3 g/dL (12.0-15.0); Mean Corp Hgb Conc 33.1 g/dL (32-36); Mean Corpuscular Hgb 30.2 pg (27.0-32.0); Mean Corpuscular Volume 91.3 fL (81-99); Mean Platelet Vol. 10.1 fl (6.2-12.0); Platelet Count 278 K/mm3 (150-450); RBC Distribution Width CV 13.8 % (11.6-14.6); RBC Distribution Width SD 46.7 fl (35.1-43.9)
[2024-07-06 08:20] LABS: Anion Gap 11 (5-15); BUN 21 mg/dL (4-19); BUN/Creat Ratio 25.4 RATIO (10-20); Calcium,Total 9.7 mg/dL (7.6-11.0); Carbon Dioxide 22.8 mmol/L (21.0-32.0); Chloride 105 mmol/L (98-108); Creatinine, Serum 0.83 mg/dL (0.70-1.20); EST Glomerular Filtration Rate 75 (>60); Glucose 108 mg/dL (70-99); Potassium 4.1 mmol/L (3.3-5.1); Sodium Level 139 mmol/L (133-145)
== END | disposition home or self-care (01) ==
LOC: PSN 06:52
PROVIDERS: PCP Family Medicine Geriatric Medicine; Referring Provider Otolaryngology; Visit Provider Otolaryngology
DX: Z01.818 Encounter for other preprocedural examination (principal); Z01.810 Encounter for preprocedural cardiovascular examination
CPT/HCPCS: 36415; 80048; 85027; 93005

== ENCOUNTER → 2024-11-30 | Outpatient (CLI) | payer MEDICARE, SELFPAY ==
[2024-11-30 14:21] LABS: Hematocrit 50.4 % (37-47); Hemoglobin 17.0 g/dL (12.0-15.0); Immature Granulocytes Count 0.150 X10^3/uL (0.0-0.0); Mean Corp Hgb Conc 33.7 g/dL (32-36); Mean Corpuscular Volume 89.4 fL (81-99); Mean Platelet Vol. 10.4 fl (6.2-12.0); NRBC Flagged by Analyzer 0 % (0-5); Platelet Count 240 K/mm3 (150-450); RBC Distribution Width CV 13.3 % (11.6-14.6); RBC Distribution Width SD 43.7 fl (35.1-43.9); Red Blood Count 5.64 M/mm3 (4.2-5.4); White Blood Count 11.9 K/mm3 (4.4-11.0)
[2024-11-30 16:20] LABS: AST(SGOT) 18 U/L (<=31); Alanine Aminotransfer ALT/SGPT 14 U/L (<=34); Albumin, Serum 4.4 g/dL (3.4-4.8); Alkaline Phosphatase 96 U/L (35-104); Anion Gap 16 (5-15); BUN 18 mg/dL (4-19); BUN/Creat Ratio 20.1 RATIO (10-20); Calcium,Total 10.1 mg/dL (7.6-11.0); Carbon Dioxide 20.0 mmol/L (21.0-32.0); Chloride 104 mmol/L (98-108); Cholesterol 302 mg/dL (<=200); Globulin 3.1 g/dL (2.2-4.2); Glucose 104 mg/dL (70-99); Low Density Lipoprotein Calc. 202 mg/dL; Potassium 3.9 mmol/L (3.3-5.1); Triglycerides 316 mg/dL; Very Low Density Lipoprotein 63 mg/dL (5-40); Vitamin D,25 Hydroxy 8.6 ng/mL (30-100); cholesterol:hdl ratio screen 8.25
[2024-11-30 22:10] LABS: Xtra Tube Kwok EXTRA TUBE
== END | disposition home or self-care (01) ==
LOC: POLAB3 14:10
PROVIDERS: PCP Family Medicine Geriatric Medicine; Visit Provider Family Medicine Geriatric Medicine
DX: E03.9 Hypothyroidism, unspecified (principal); R53.83 Other fatigue; E78.5 Hyperlipidemia, unspecified; E55.9 Vitamin D deficiency, unspecified
CPT/HCPCS: 36415; 80053; 80061; 82306; 84443; 85025

== ENCOUNTER → 2024-12-15 | Outpatient (CLI) | payer MEDICARE, SELFPAY | END | disposition home or self-care (01) | LOC: PSN 09:29 | PROVIDERS: PCP Family Medicine Geriatric Medicine; Referring Provider Family Medicine Geriatric Medicine; Visit Provider Family Medicine Geriatric Medicine | DX: F17.210 Nicotine dependence, cigarettes, uncomplicated (principal) | CPT/HCPCS: 94060 ==

== ENCOUNTER → 2025-02-21 | Outpatient (CLI) | payer MEDICARE, SELFPAY ==
--- NOTE | 2025-02-21 09:49 | ECHOD_ITS ---
Reason For Study Reason For Study: HCM Procedure This was a 2D Doppler, Color Flow transthoracic echocardiogram. The patient is in sinus rhythm. Myocardial strain analysis was performed in this exam to aid in the assessment of cardiac function. Exam performed in department. Left Ventricle Small-sized left ventricle. Septal wall thickness: 1.5 cm. 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 The global longitudinal strain = -11.9% (abnormal). Left ventricular EF by calculated strain assessments: 52%. Diastolic dysfunction grade indeterminate. Inferoseptal and anteroseptal hypokinesis present. No evidence of significant LVOT obstruction on this examination. Right Ventricle Normal right ventricle. There is a pacemaker lead in the right ventricle. Normal systolic function. Unable to estimate RV systolic pressure due to insufficient tricuspid regurgitant envelope. Atria The left and right atria are normal. Mitral Valve Mitral annular calcification present. No mitral valve prolapse. Mild mitral regurgitation. No mitral stenosis. Tricuspid Valve Normal tricuspid valve. No tricuspid stenosis. No tricuspid regurgitation. Aortic Valve Trileaflet aortic valve. Mild aortic regurgitation. No hemodynamically significant aortic stenosis. Pressure half-time 546 ms. Pulmonic Valve Normal pulmonic valve. No pulmonic stenosis. No pulmonic regurgitation. Great Vessels Normal sized aortic root. Normal ascending aorta. Pericardium/Pleural No pericardial effusion. MMode/2D Measurements & Calculations LVIDd: 4.4 cm IVSd: 1.6 cm LVOT diam: 1.9 cm LVIDs: 3.4 cm LVPWd: 1.1 cm LVOT area: 2.7 cm2 RVDd: 3.4 cm FS: 23.1 % Ao root diam: 2.8 cm asc Aorta Diam: 2.8 cm LAV(MOD- bp): 36.3 ml LAV(MOD- bp) Indexed: 20.1 ml/m2 LAV(MOD- sp2): 37.3 ml LAV(MOD- sp4): 32.6 ml SV(MOD- sp4): 24.2 ml LVAd ap4: 20.1 cm2 LVAd ap2: 18.1 cm2 LVLd ap4: 7.7 cm LVLd ap2: 7.4 cm SI(MOD- sp4): 13.4 ml/m2 EDV(MOD-sp4): 42.0 ml EDV(MOD-sp2): 35.2 ml EDV(sp4-el): 44.3 ml EDV(sp2-el): 37.6 ml LVAs ap4: 11.8 cm2 LVAs ap2: 10.5 cm2 LVLs ap4: 6.7 cm LVLs ap2: 6.6 cm ESV(MOD-sp4): 17.8 ml ESV(MOD-sp2): 13.8 ml ESV(sp4-el): 17.6 ml ESV(sp2-el): 14.2 ml EF(MOD-sp4): 57.6 % EF(MOD-sp2): 60.8 % EF(sp4-el): 60.2 % SV(MOD-sp2): 21.4 ml SV(sp4-el): 26.6 ml Ao sinus diam: 3.1 cm SI(MOD-sp2): 11.8 ml/m2 Ao ST Junction: 2.4 cm LA dimension(2D): 3.9 cm LA A4 area: 15.0 cm2 TAPSE: 1.4 cm RA A4 area: 8.6 cm2 Time Measurements MV dec time: 0.25 sec Doppler Measurements & Calculations MV E max artemio: 79.4 cm/sec Lat Peak E' Artemio: 6.4 cm/sec Med Peak E' Artemio: 3.7 cm/sec MV A max artemio: 144.1 cm/sec E/E' lat: 12.4 E/E' med: 21.3 MV E/A: 0.55 MV dec slope: 314.5 cm/sec2 Ao V2 max: 150.3 cm/sec AI max artemio: 422.4 cm/sec Ao max P.0 mmHg AI max P.4 mmHg Ao V2 mean: 100.4 cm/sec AI dec slope: 235.9 cm/sec2 Ao mean P.7 mmHg AI P1/2t: 524.4 msec Ao V2 VTI: 29.5 cm AV (velocity ratio): 0.68 SHANNON(I,D): 1.8 cm2 SHANNON(V,D): 2.1 cm2 LV V1 max: 118.8 cm/sec SV(LVOT): 54.5 ml PA V2 max: 105.9 cm/sec LV V1 max P.6 mmHg LV V1 mean P.3 mmHg LV V1 mean: 87.3 cm/sec LV V1 VTI: 20.2 cm TR max artemio: 205.3 cm/sec TR max P.9 mmHg ECHO/Echo Complete Interpretation Summary Estimated left ventricular EF: 52% Diastolic dysfunction grade indeterminate. Inferoseptal and anteroseptal hypokinesis present. No evidence of significant L VOT obstruction at rest or with provocation on this examination. Mild aortic regurgitation. Compared to prior echocardiogram in 07/09/2023: Left ventricular ejection fracti on is decreased, septal thickness has increased. Wall motion abnormalities present in this examination. Ordering Physician: Mateo Alfaro Referring Physician: Marshall Nielsen Chi Performed By: [place], Petra, RDCS
== END | disposition home or self-care (01) ==
LOC: CVS 09:48
PROVIDERS: PCP Family Medicine Geriatric Medicine; Referring Provider Nurse Practitioner Family; Visit Provider Nurse Practitioner Family
DX: I42.2 Other hypertrophic cardiomyopathy (principal)
CPT/HCPCS: 93306